=== PATIENT | male | born 1940 | race Caucasian/White ===

== ENCOUNTER 2016-09-18 11:26 | Inpatient (IN) | payer OTHER ==
--- NOTE | ~2016-09-18 | CN ---
Consultation Report [facility] [address] [place]. [address] NAME: RITA WATTS : 39 STATUS : ADM IN PAT#: [id number] AGE: 75 ADM/REG DATE : 09/18/16 MR#: [id number] REPORT SERV DATE: 09/18/16 DICTATED BY: WILLIE LOBATO DATE: 09/18/16 REPORT STATUS : Draft TRANSCRIBED BY: MODL DATE: 09/18/16 CONSULT NOTE DATE OF CONSULTATION: 09/18/2016 REASON FOR CONSULT: Cholecystitis. HISTORY OF PRESENT ILLNESS: Mr. Watts is a 75-year-old gentleman, who states he had an acute onset of right upper quadrant pain yesterday. This progressively worsened until he went to [facility] today. He was noted to have an elevated bilirubin at that time. He was then transferred here to [facility]. He also had an ultrasound performed at [facility], which showed what sounds like cholelithiasis and some gallbladder wall thickening, as well as hepatomegaly. It did not show any common duct dilatation. The patient states he has a CT of the abdomen performed [facility], but we do not have the results of that currently. Prior to that, he did have a fall about three days ago, which he fell on his right side and has had some right-sided abdominal pain, but this was completely different than his previous. He states his urine turned dark today. He has had no previous symptomatology. He denies any fever or chills but has had nausea and vomiting. PAST MEDICAL HISTORY: Includes insulin-dependent diabetes, hypertension, and sleep apnea. PAST SURGICAL HISTORY: Includes no previous abdominal surgeries. MEDICATIONS: B12, Flonase, Lasix, insulin, Combivent, magnesium oxide, Xyzal, metformin, metoprolol, Singulair, and omeprazole. ALLERGIES: HE STATES HE IS ALLERGIC TO LISINOPRIL. FAMILY HISTORY: Significant for his mother who had a history of breast cancer. SOCIAL HISTORY: He is . Denies any recent alcohol use. Stopped smoking in 1988 after smoking for seven years. LABORATORY DATA: From [facility], direct bilirubin was 6.0, total bilirubin was 7.6, AST 541, alkaline phosphatase 266, white count 12.5, hematocrit 48.3, and platelets 291. Creatinine 1.4, BUN 31. IMPRESSION: 75-year-old gentleman with what sounds like cholecystitis and possibly a common bile duct stone, given his significantly elevated bilirubin. At this point, he is nontoxic and afebrile. Recommend placing him on antibiotics and continue IV fluids with clear liquids. Given his significantly elevated bilirubin, I would recommend ERCP if it does not come down tomorrow. If his bilirubin significantly decreases tomorrow, we will discuss cholecystectomy tomorrow afternoon. This was all discussed with the family in detail. Consultation Report [address] [place]. [address] NAME: RITA WATTS : 39 STATUS : ADM IN PAT#: [id number] AGE: 75 ADM/REG DATE : 09/18/16 MR#: [id number] REPORT SERV DATE: 09/18/16 DICTATED BY: WILLIE LOBATO DATE: 09/18/16 REPORT STATUS : Draft TRANSCRIBED BY: ELA DATE: 09/18/16 ANTONY/ELA Willie Lobato M.D. / [id number] CC: Pool Santoyo M.D.
--- NOTE | ~2016-09-18 | OP ---
Record Of Operation [facility] [address] [place]. [address] NAME: RITA WATTS : 39 STATUS : ADM IN PAT#: [id number] AGE: 75 ADM/REG DATE : 09/18/16 MR#: [id number] REPORT SERV DATE: 09/19/16 DICTATED BY: BEULAH MCFARLAND DATE: 09/19/16 REPORT STATUS : Draft TRANSCRIBED BY: MODL DATE: 09/19/16 DATE OF PROCEDURE: 09/19/2016 The patient was status post ERCP earlier today with early sepsis syndrome and then a code blue was called. The patient had agonal breathing and transiently lost pulse and pressure. He had received 1 IV push of epinephrine and high quality compressions CPR. We came to the bedside and using a GlideScope, we were able to directly visualize the vocal cords. He had some bilious fluids in his oropharynx but after suctioning the vocal cords, we were unimpeded, and we advanced to size 8 oroendotracheal tube beyond the vocal cords without difficulty. It was secured in place, and proper placement was confirmed with good color change on an end-tidal CO2 indicator, and good auscultation of breath sounds bilaterally. Chest radiograph is pending. I then advanced an orogastric tube with some difficulty since the patient had a very large swollen tongue and a very narrow oropharynx. The tube was advanced finally without further difficulty with good aspiration of bilious material. KUB is also pending at this time. IMPRESSION: Successful hoahaoism of spontaneous circulation following brief cardiac arrest, code blue CPR, successful oral endotracheal intubation for acute hypercapnic hypoxemic respiratory failure, and successful placement of orogastric tube. REID/ELA Beulah Mcfarland M.D. / [id number] CC: Pool Santoyo M.D.
--- NOTE | ~2016-09-18 | CN ---
Consultation Report [facility] [address] [place]. [address] NAME: RITA WATTS : 39 STATUS : [facility]#: [id number] AGE: 75 ADM/REG DATE : 09/18/16 MR#: [id number] REPORT SERV DATE: 09/20/16 DICTATED BY: BALDEMAR [place] DATE: 09/20/16 REPORT STATUS : Draft TRANSCRIBED BY: MODL DATE: 09/20/16 NEPHROLOGY CONSULTATION DATE OF CONSULTATION: 09/20/2016 INDICATION FOR CONSULTATION: Acute kidney injury. HISTORY OF PRESENT ILLNESS: Mr. Watts is a 75-year-old male, who was transferred from [facility] following presentation there with right upper quadrant pain and elevated bilirubin. His LFTs were markedly elevated with a total bilirubin of 7.6. He was felt to have acute cholecystitis and was seen by Surgery. They had no films for review, but felt that he needed to undergo ERCP. The ERCP was performed by GI on 09/19/2016 with note of esophagitis, hiatal hernia, gastritis, and duodenitis, on the EGD portion. His ERCP demonstrated dilated common bile duct and findings were cleared with balloon dilatation. The patient subsequently experienced code blue with suggestion of early sepsis. He required CPR and intubation and was stabilized. Currently, he is on Levophed and ventilator support. His labs reflect an admission creatinine of 1.67, which has risen to a value of 3.36. He has a bilirubin of 10.3 with elevated alkaline phosphatase of 447, ALT of 562, and AST of 814. His WBC is 12.5, hemoglobin is 14.8. He is currently requiring FiO2 of 90% for ventilator support. Urine output is minimal with lowest blood pressure of 76/46 and T-max was 99.9. PAST MEDICAL HISTORY: Per chart, type 2 diabetes mellitus, hypertension, gout, gastroesophageal reflux disease, foot drop, total knee replacement, vasectomy, fracture right lower extremity, sleep apnea, gastroesophageal reflux disease, hypertension. FAMILY HISTORY: Per chart, breast cancer in mother. No reported end-stage renal disease. SOCIAL HISTORY: The patient does not smoke or drink per chart. ALLERGIES: TO LISINOPRIL CAUSING COUGH. HOME MEDICATIONS: Allopurinol, amlodipine, aspirin, Lipitor, Astelin nasal spray, Symbicort, vitamin D, cinnamon, cranberry, vitamin B12, Flonase nasal inhaler, furosemide, insulin, Humulin 70/30, Combivent inhaler, Xyzal, magnesium oxide, metformin, Lopressor, Singulair, multivitamin, naltrexone, fish oral, Prilosec, garlic. REVIEW OF SYSTEMS: Unable to obtain. PHYSICAL EXAMINATION: GENERAL: Elderly male, ventilated, sedated on Levophed. HEENT: Eyes, no scleral icterus. Pupils are sluggishly reactive. Nares, no lesions or discharge. Mouth with OG, ET tube in place. Consultation Report [address] [place]. [address] NAME: RITA WATTS : 39 STATUS : [facility]#: [id number] AGE: 75 ADM/REG DATE : 09/18/16 MR#: [id number] REPORT SERV DATE: 09/20/16 DICTATED BY: BALDEMAR [place] DATE: 09/20/16 REPORT STATUS : Draft TRANSCRIBED BY: ELA DATE: 09/20/16 NECK: No thyromegaly, masses, bruits. CHEST/LUNGS: Lateral crackles. Unable to appreciate rhonchi or wheezes. CARDIAC: Regular rate and rhythm. Unable to appreciate murmur, gallop, or rub. ABDOMEN: Mild right upper quadrant discomfort, unable to appreciate hepatosplenomegaly, masses, bruits. No guarding. : Indwelling Calvo. RECTAL: Not performed. EXTREMITIES: No edema. No calf tenderness. DERMIS: No rash. No skin lesions. NEUROLOGIC: Unable to evaluate. IMPRESSION: 1. Probable acute on chronic kidney disease due to acute tubular necrosis associated with severe sepsis and shock. 2. Severe sepsis with shock. 3. Acute respiratory failure. 4. Cardiac arrest. 5. Recent ERCP for dilated common bile duct and acute cholecystitis. 6. Type 2 diabetes mellitus. 7. History of hypertension. 8. Gastritis, esophagitis, duodenitis on EGD. 9. Elevated liver function test. 10.Gout. 11.Gastroesophageal reflux disease. 12.History of right lower extremity fracture. PLAN: 1. The patient will likely need DIGITAL SALES MANAGER. 2. Labs. LEANNA/ELA Baldemar Taylor M.D. / [id number] CC: Pool Santoyo M.D.
--- NOTE | ~2016-09-18 | EGD ---
EGD REPORT [facility] [address] [place] [address] NAME: RITA WATTS : 39 STATUS : ADM IN PAT#: [id number] AGE: 75 ADM/REG DATE : 09/18/16 MR#: [id number] REPORT SERV DATE: 09/19/16 DICTATED BY: CELI ROCHE DATE: 09/19/16 REPORT STATUS : Draft TRANSCRIBED BY: IATARH [facility] DATE: 09/19/16 [facility] Patient Name: Rita Watts Date of : 1940 Attending MD: CELI ROCHE MD Procedure Date No Time: 09/19/2016 Procedure: ERCP Indications: Abdominal pain of suspected biliary origin, Suspected bile duct stone(s), Suspected ascending cholangitis, Jaundice, Abnormal liver function test Referring MD: SWATI CONTRERAS Medicines: General Anesthesia Complications: No immediate complications. Procedure: Pre-Anesthesia Assessment: - ASA Grade Assessment: III - A patient with severe systemic disease. After obtaining informed consent, the scope was passed under direct vision. Throughout the procedure, the patient's blood pressure, pulse, and oxygen saturations were monitored continuously. The TJF Q180V [id number] was introduced through the mouth, and advanced to the duodenum and used to inject contrast into the bile duct and ventral pancreatic duct. The ERCP was accomplished without difficulty. The patient tolerated the procedure well. Findings: The major papilla was normal. The minor papilla was not seen. The bile duct was deeply cannulated with the short-nosed traction sphincterotome. Contrast was injected. I personally interpreted the pancreatic duct images. Ductal flow of contrast was adequate. Image quality was adequate. Contrast extended to the pancreatic duct. The in the biliary system was normal. The bile duct was deeply cannulated with the short-nosed traction sphincterotome. Contrast was injected. The main bile duct was diffusely dilated, with a stone causing an obstruction. A 12 mm biliary sphincterotomy was made with a short-tip traction sphincterotome using ERBE electrocautery. There was no post-sphincterotomy bleeding. The main bile duct contained multiple stones, the largest of which was 8 mm in diameter. The biliary tree was swept with a 12 mm balloon starting at the upper third of the main bile duct. All stones were removed. Impression: - The major papilla appeared normal. - The entire main bile duct was dilated, with a stone causing an obstruction. EGD REPORT [address] [address] NAME: RITA WATTS : 39 STATUS : ADM IN [facility]#: [id number] AGE: 75 ADM/REG DATE : 09/18/16 MR#: [id number] REPORT SERV DATE: 09/19/16 DICTATED BY: CLEI ROCHE DATE: 09/19/16 REPORT STATUS : Draft TRANSCRIBED BY: [employer] DATE: 09/19/16 - Choledocholithiasis was found. Complete removal was accomplished by biliary sphincterotomy and balloon extraction. Recommendation: - Clear liquid diet. - Check liver enzymes (AST, ALT, alkaline phosphatase, bilirubin) tonight. - and in the morning - Check hemogram with white blood cell count and platelets tonight. - and in the morning - OK for surgery from GI point of view - Return patient to [facility] for [facility] care. 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 All rights reserved. The codes documented in this report are preliminary and upon wilderness guide review may be revised to meet current compliance requirements. Celi Roche MD CELI ROCHE MD EGD REPORT [facility] [address] [place], [place] [address]. [address] NAME: RITA WATTS : [birth year] STATUS : ADM IN [facility]#: [id number] AGE: 75 ADM/REG DATE : 09/18/16 MR#: [id number] REPORT SERV DATE: 09/19/16 DICTATED BY: CELI ROCHE DATE: 09/19/16 REPORT STATUS : Draft TRANSCRIBED BY: [employer] DATE: 09/19/16 09/19/2016 2:55 PM This report has been signed electronically. Number of Addenda: 0 Note Initiated On: 09/19/2016 11:49 AM Scope Withdrawal Time 0 hours 0 minutes [address] [place], [place] [address] [address]
--- NOTE | ~2016-09-18 | IDS ---
Interim Discharge Summary [facility] [address] [place]. [address] NAME: RITA WATTS : 39 STATUS : ADM IN PAT#: [id number] AGE: 76 ADM/REG DATE : 09/18/16 MR#: [id number] REPORT SERV DATE: 09/29/16 DICTATED BY: CHON POP IV DATE: 09/28/16 REPORT STATUS : Draft TRANSCRIBED BY: MODL DATE: 09/28/16 ADMISSION DATE: 09/18/2016 DISCHARGE DATE: Date of transfer to the ICU is the 09/19/2016. REASON FOR TRANSFER: 1. Acute hypoxemic respiratory failure following an ERCP. 2. Septic shock, still on vasopressor agents. 3. Cholangitis/cholecystitis, status post cholecystostomy tube and the ERCP. 4. Acute kidney injury, remaining on BUILDING MAINTENANCE CUSTODIAN. 5. Atrial fibrillation with rapid ventricular response, now off amiodarone. 6. Diabetes mellitus, on insulin coverage. CONSULTANTS: Include Nephrology, who continues to follow the patient, Gastroenterology, who continues to follow the patient, and General Surgery who is available if he recovers. PROCEDURES: The patient had the ERCP prior to his transfer to the unit. He had a central line placed by Anesthesiology at the same time. The patient underwent a cholecystostomy tube on 09/25/2016 and had a PICC line placed on 09/27/2016. He had a Vas-Cath placed on 09/20/2016. MEDICATIONS: Were reviewed. HOSPITAL COURSE: The patient was intubated by Dr. Mcfarland on 09/29/2016 and moved to the ICU. At that time, he was in shock, requiring vasopressor agents. Levophed has been able to be weaned. He remains vasopressor dependent. On 09/20/2016, he had a Vas-Cath placed and began BUILDING MAINTENANCE CUSTODIAN, and he remains on BUILDING MAINTENANCE CUSTODIAN at this time. The patient initially required very high FiO2 to maintain adequate oxygen saturations. This improved throughout the week. He did develop atrial fibrillation with rapid ventricular response on 09/21/2016 requiring amiodarone, which was continued for four days with no further dysrhythmias. The patient had clinical improvement in the early week; however then, had increase in his oxygen needs as well as his vasopressors. This correlated with a continued rise in his transaminases and alkaline phosphatase. An ultrasound was obtained of his right upper quadrant demonstrating a dilated gallbladder with thickened dominguez and pericholecystic fluid. The patient was felt to be too unstable for surgery, so underwent cholecystostomy tube on 09/25/2016. All cultures have been negative, though he has remained empirically on his vancomycin and Zosyn. He had significant clinical improvement after the cholecystostomy tube and we have currently weaned him down to 40%, and he has initiated wean trials. There has been some movement down in his Levophed doses. There was a very long discussion with Gastroenterology, myself, and the family on 09/25/2016 concerning continued support to the patient with the patient's initially wanting withdrawal of therapy despite his clinical improvement. She agreed with continued support at this time, though it is unlikely the patient is a candidate for tracheostomy. He is on a heparin drip not because of his tachydysrhythmia, but because of difficulty with recurrent clotting of the BUILDING MAINTENANCE CUSTODIAN filter. Interim Discharge Summary [address] [place]. [address] NAME: RITA WATTS : 38 STATUS : ADM IN [facility]#: [id number] AGE: 76 ADM/REG DATE : 09/18/16 MR#: [id number] REPORT SERV DATE: 09/29/16 DICTATED BY: CHON POP IV DATE: 09/28/16 REPORT STATUS : Draft TRANSCRIBED BY: ELA DATE: 09/28/16 Critical Care team will assume care on 09/29/2016. The patient does remain a limited code with no CPR. SCOOTER/ELA Chon Pop IV, M.D. / [id number] CC: Yazan Markham IV, MD
--- NOTE | ~2016-09-18 | HP ---
History And Physical [place] [id number] [place]. [address] NAME: RITA WATTS : [birth year] STATUS : ADM IN PAT#: [id number] AGE: 75 ADM/REG DATE : 09/18/16 MR#: [id number] REPORT SERV DATE: 09/18/16 DICTATED BY: TEJAS MORALES DATE: 09/18/16 REPORT STATUS : Draft TRANSCRIBED BY: MODL DATE: 09/18/16 DATE OF ADMISSION: 09/18/2016 CHIEF COMPLAINT: Probable cholecystitis. HISTORY OF PRESENT ILLNESS: The patient is a 75-year-old male. He has a past medical history significant for diabetes, hypertension, GERD, gout, and footdrop. The patient presented today as a referral from [facility] for gallbladder obstruction versus cholecystitis. The patient states that he had a fall around [facility] . He describes it as a simple mechanical fall as he has some right footdrop. He believes he missed a stair and fell forward. He had some right rib pain at that time and was recuperating from that. Yesterday, he reported the onset of more intense pain that he describes as generalized around his abdomen that further discussion commit somewhat to being little more right upper quadrant. He felt that was probably related to his fall but throughout the day had worsening pain and started developing nausea and vomiting, mostly dry heaves. He is not aware that he ran any fever. He presented to the [facility] ER today with complaints and had a CT scan and an ultrasound as well as lab work. The ultrasound noted gallbladder wall thickening and ductal dilatation, and cholecystitis. His CT scan did not show the gallbladder to be the upper limits of normal, neither showed a definitive stone, although his LFTs are markedly elevated as is his total bilirubin of 7.6. Currently, he is complaining of some pain, but he is alert and oriented. He has received pain medications from [facility] prior to arrival. He complains of being very thirsty and wanting to eat, otherwise he is without complaints. He does not recount any previous history of diagnosed cardiovascular or pulmonary problems. PAST MEDICAL HISTORY: As covered above. PAST SURGICAL HISTORY: He has had a knee replacement, vasectomy, and fracture to his right leg requiring plates and screws. CURRENT MEDICATIONS: His list is pending. ALLERGIES: HE REPORTS LISINOPRIL CAUSES HIM A COUGH. FAMILY HISTORY: Mother from breast cancer. He is uncertain of his father's history. SOCIAL HISTORY: He is a nondrinker, nonsmoker. REVIEW OF SYSTEMS: HEENT: No headache, dizziness. CARDIOVASCULAR: No chest pain or palpitations. PULMONARY: No cough or shortness of breath. GI: As covered in HPI. He also in addition to that states he has some constipation for the past day or so. : No dysuria or frequency. History And Physical [address] [address] NAME: RITA WATTS : 39 STATUS : ADM IN PAT#: [id number] AGE: 75 ADM/REG DATE : 09/18/16 MR#: [id number] REPORT SERV DATE: 09/18/16 DICTATED BY: TEJAS MORALES DATE: 09/18/16 REPORT STATUS : Draft TRANSCRIBED BY: ELA DATE: 09/18/16 NEUROMUSCULOSKELETAL: Positive but otherwise 10-point review of systems is negative. PHYSICAL EXAMINATION: VITAL SIGNS: BP was 180/78, sat 93%, temp 97.6, pulse 95, respirations 16. GENERAL: He is awake, alert, and oriented. HEENT: Normocephalic, atraumatic. Sclerae nonicteric. NECK: Supple. HEART: Tachycardic. Regular. LUNGS: Clear to auscultation without rhonchi, rales, or wheezes. ABDOMEN: He is slightly obese. He does have some abdominal tenderness that is generalized. It does seem to be slightly more right up under the right ribs. EXTREMITIES: Show some chronic discoloring changes to his lower extremities with nothing acute. NEUROLOGIC: Grossly intact. LABORATORY DATA: As reviewed from [facility], ultrasound abdomen read as hepatomegaly. Gallbladder is distended with sludge and echogenic material with wall thickening suggestive of acute cholecystitis. Gallbladder wall measuring 7.6, and common bile duct measuring 7.6. CT shows no acute abnormality of the abdomen and pelvis, top normal gallbladder size and length, increased gallbladder density, which may represent milk of calcium bile or cholelithiasis, degenerative joint disease. X-ray showing no pneumothorax and no rib fracture is identified. Chemistries showed UA with 80 ketones and 500 sugar. Sodium 137, potassium 3.8, chloride 96, CO2 26, BUN and creatinine were 31 and 1.4. Glucose was 227, total bilirubin was 7.6. AST and ALT were 581 and 465. Alkaline phosphatase was 266. White count was 12.5, H and H is 15.8 and 48.3, platelets were 291. ASSESSMENT: 1. Probable cholecystitis with elevated white count, compatible with clinical symptoms and pain and tenderness. 2. Elevated LFTs and bilirubin. Question obstruction not seen on CT or ultrasound. PLAN: The patient has been admitted. IV pain medications, IV fluids, prophylactic antibiotics with Rocephin. We will consult General Surgery for possible cholecystectomy versus GI for ERCP. We will await the patient's home medications. We will cover with sliding scale insulin. We will cover with p.r.n. BP medications if blood pressure does not decrease with pain medications. CHERIE/ELA Tejas Morales M.D. / [id number] CC: History And Physical [address] [address] NAME: RITA WATTS : 38 STATUS : [facility]#: [id number] AGE: 75 ADM/REG DATE : 09/18/16 MR#: [id number] REPORT SERV DATE: 09/18/16 DICTATED BY: TEJAS MORALES DATE: 09/18/16 REPORT STATUS : Draft TRANSCRIBED BY: MODL DATE: 09/18/16 Tejas Morales M.D.
--- NOTE | ~2016-09-18 | CN ---
Consultation Report [facility] [address] [facility] [place]. [address] NAME: RITA WATTS : [birth year] STATUS : ADM IN [facility]#: [id number] AGE: 75 ADM/REG DATE : 09/18/16 MR#: [id number] REPORT SERV DATE: 09/19/16 DICTATED BY: ISAC JUNE DATE: 09/19/16 REPORT STATUS : Draft TRANSCRIBED BY: MODL DATE: 09/19/16 GI CONSULTATION DATE OF CONSULTATION: 09/18/2016 REASON FOR CONSULTATION: Elevated liver enzymes. Right-sided abdominal pain. Acute cholecystitis. HISTORY OF PRESENT ILLNESS: Mr. Watts is a 75-year-old gentleman with a history of diabetes, hypertension, and sleep apnea who had a fall and noted some right-sided abdominal pain. He was seen at [facility]. He was evaluated there and had an ultrasound which showed hepatomegaly and some wall thickening of the gallbladder as well as ductal dilatation and signs suggestive of cholecystitis. His liver enzymes have also been elevated. His bilirubin is 7.6, AST 581, ALT 465, alkaline phosphatase 137, and lipase is 83. White count is 12.5. He has been afebrile. Vital signs are stable. Surgery has been consulted for acute cholecystitis. PAST MEDICAL HISTORY: Diabetes, hypertension, reflux, gout, and footdrop. PAST SURGICAL HISTORY: Right knee replacement, vasectomy, and fracture of the right leg. FAMILY HISTORY: Breast cancer. SOCIAL HISTORY: No smoking, alcohol, or drug use. MEDICATIONS: Reviewed. ALLERGIES: REVIEWED. PHYSICAL EXAMINATION: VITAL SIGNS: The patient is afebrile. His vital signs are stable. GENERAL: The patient is awake, alert, and oriented, in some mild distress secondary to his abdominal pain. Obese. HEENT: Atraumatic, normocephalic. Scleral icterus. Mucous membranes moist. CARDIAC: S1, S2. CHEST: Clear. ABDOMEN: Obese, soft, tender to palpation mostly in the right abdomen. Bowel sounds normoactive. LABORATORY DATA: Showed WBC 12.5, hemoglobin 18.8, hematocrit 48.3, and platelets 291. Sodium 137, potassium 3.8, chloride 96, bicarb 26, BUN 31, creatinine 1.4, glucose 227, and lipase 83. Outlying facility ultrasound report reviewed. IMPRESSION AND PLAN: Acute cholecystitis. We will check liver enzymes and trend; if remains Consultation Report [facility] [address] [place]. [address] NAME: RITA WATTS : 38 STATUS : ADM IN PAT#: [id number] AGE: 75 ADM/REG DATE : 09/18/16 MR#: [id number] REPORT SERV DATE: 09/19/16 DICTATED BY: ISAC JUNE DATE: 09/19/16 REPORT STATUS : Draft TRANSCRIBED BY: ELA DATE: 09/19/16 elevated, we will increase. We will plan for ERCP for a possible choledocholithiasis. Appreciate Surgery on board. We will continue to follow. KENTRELL/ELA Isac June MD / [id number] CC: Yazan Haas MD
--- NOTE | ~2016-09-18 | DS ---
Discharge Summary [facility] [address] [facility] [place]. [address] NAME: RITA WATTS : 38 STATUS : DIS IN PAT#: [id number] AGE: 76 ADM/REG DATE : 09/18/16 MR#: [id number] REPORT SERV DATE: 10/21/16 DICTATED BY: CLEVE RIVERA DATE: 10/21/16 REPORT STATUS : Draft TRANSCRIBED BY: MODL DATE: 10/21/16 ADMISSION DATE: 09/18/2016 DISCHARGE DATE: 09/30/2016 SUMMARY. DATE OF : 09/30/2016 at 12:15 p.m. DIAGNOSES: 1. Acute hypoxic respiratory failure. 2. Septic shock. 3. Cholangitis/cholecystitis. 4. Acute kidney injury. 5. Atrial fibrillation with rapid ventricular response. 6. Diabetes mellitus. CONSULTANTS: Nephrology, Gastroenterology, Interventional Radiology, General Surgery. PROCEDURES: ERCP by GI. Central line. Cholecystostomy tube 09/25/2016. PICC line, 09/27/2016. Vas cath, 09/20/2016. HOSPITAL COURSE: The patient was intubated and sent to the ICU on 09/29/2016. He was in shock on vasopressor agents which included Levophed. He had worsening of acute kidney injury and drop in urine output. So, a vas cath had to be placed on 09/20/2016 and he was started on CRRT. He also given amiodarone because of atrial fibrillation with a rapid heart rate. The patient had diseased gallbladder and felt too high risk for surgery, so a cholecystostomy tube was placed on 09/25/2016. He was on antibiotics including vancomycin and Zosyn. The patient had a decline around 09/28/2016 and 09/29/2016 with worsening jaundice and shock-like symptoms. Had Interventional Radiology, GI, and General Surgery re- evaluate the patient for possible procedure intervention. He was taken to IR for potential replacement of his cholecystostomy tube that was no longer draining. It was felt that, replacing a new one would not be helpful and there was no other type of interventional procedure that he would be a candidate for and Surgery felt that the patient was still too high risk to go back to the operating room. It was thought that the patient's main problem was liver disease itself and that removing the gallbladder may not benefit him. I had been in communication with the by phone and she decided that due to lack of clinical improvement that she wanted to withdraw care. The patient was made DNR and the was at bedside when the patient coded, underwent cardiac arrest and passed. He on 09/30/2016 at 12:15 p.m. DICTATED BY: Cleve Rivera DO CEP/ELA Discharge Summary [address] [address] NAME: RITA WATTS : 38 STATUS : DIS IN PAT#: [id number] AGE: 76 ADM/REG DATE : 09/18/16 MR#: [id number] REPORT SERV DATE: 10/21/16 DICTATED BY: CLEVE RIVERA DATE: 10/21/16 REPORT STATUS : Draft TRANSCRIBED BY: ELA DATE: 10/21/16 Cleve Rivera DO / [id number] CC: Yazan Markham IV, MD
--- NOTE | ~2016-09-18 | EGD ---
EGD REPORT [address] [place] [address] NAME: RITA WATTS : 38 STATUS : ADM IN PAT#: [id number] AGE: 75 ADM/REG DATE : 09/18/16 MR#: [id number] REPORT SERV DATE: 09/19/16 DICTATED BY: CELI ROCHE DATE: 09/19/16 REPORT STATUS : Draft TRANSCRIBED BY: [facility] DATE: 09/19/16 Endoscopy Center Patient Name: Rita Watts Date of : 1940 Attending MD: CELI ROCHE MD Procedure Date No Time: 09/19/2016 Procedure: Upper GI endoscopy Indications: Epigastric abdominal pain, Abdominal pain in the right upper quadrant, Abdominal pain in the left upper quadrant, Heartburn, Gastro-esophageal reflux disease Referring MD: DOROTHY CARY Medicines: General Anesthesia Complications: No immediate complications. Procedure: Pre-Anesthesia Assessment: - ASA Grade Assessment: III - A patient with severe systemic disease. After obtaining informed consent, the endoscope was passed under direct vision. Throughout the procedure, the patient's blood pressure, pulse, and oxygen saturations were monitored continuously. The GIF [id number] was introduced through the mouth, and advanced to the third part of duodenum. The upper GI endoscopy was accomplished without difficulty. The patient tolerated the procedure well. Findings: Non-severe esophagitis with no bleeding was found in the entire esophagus. A large hiatus hernia was present. as seen on retroflexion Diffuse mild inflammation characterized by congestion (edema) and erythema was found in the entire examined stomach. Diffuse moderate inflammation characterized by congestion (edema), erosions and erythema was found in the duodenal bulb and in the second part of the duodenum. The 3rd part of the duodenum was normal. Impression: - Non-severe reflux esophagitis. - Hiatus hernia. - Gastritis. - Duodenitis. - Normal 3rd part of the duodenum. Recommendation: - Clear liquid diet today. - Continue present medications. - Perform an ERCP today. EGD REPORT [address] [address] NAME: RITA WATTS : 38 STATUS : ADM IN [facility]#: [id number] AGE: 75 ADM/REG DATE : 09/18/16 MR#: [id number] REPORT SERV DATE: 09/19/16 DICTATED BY: CELI ROCHE DATE: 09/19/16 REPORT STATUS : Draft TRANSCRIBED BY: [employer] DATE: 09/19/16 - [facility]. Procedure Code(s): --- Professional --- 00217, Esophagogastroduodenoscopy, flexible, transoral; diagnostic, including collection of specimen(s) by brushing or washing, when performed (separate procedure) Diagnosis Code(s): --- Professional --- K21.0, Gastro-esophageal reflux disease with esophagitis K44.9, Diaphragmatic hernia without obstruction or gangrene K29.70, Gastritis, unspecified, without bleeding K29.80, Duodenitis without bleeding R10.13, Epigastric pain R10.11, Right upper quadrant pain R10.12, Left upper quadrant pain R12, Heartburn CPT copyright 2013 [employer]. All rights reserved. The codes documented in this report are preliminary and upon line palletizer review may be revised to meet current compliance requirements. Celi Roche MD CELI ROCHE MD 09/19/2016 2:34 PM This report has been signed electronically. Number of Addenda: 0 Note Initiated On: 09/19/2016 12:53 PM Scope Withdrawal Time 0 hours 0 minutes 0 seconds [address] [place] [address]
[2016-09-18] MEDS ORDERED: L40 PO (14:15)
[2016-09-18] MEDS ORDERED: LIPITOR20 PO (14:15)
[2016-09-18] MEDS ORDERED: INSNOV7030 SC ×2 (14:16→14:17)
[2016-09-18] MEDS ORDERED: NORV5 PO (14:20)
[2016-09-18] MEDS ORDERED: LOP25 PO (14:21)
[2016-09-18] MEDS ORDERED: GLUCOPHAGE1000 MG PO (14:21)
[2016-09-18] MEDS ORDERED: PRILO PO (14:22)
[2016-09-18] MEDS ORDERED: CONTRAVE ER 8-1 EACH PO (14:23)
[2016-09-18] MEDS ORDERED: MAGOX4 PO (14:23)
[2016-09-18] MEDS ORDERED: HALF81 PO (14:24)
[2016-09-18] MEDS ORDERED: Z300 PO (14:24)
[2016-09-18] MEDS ORDERED: VITAMIN D1000 UNI1 PO (14:25)
[2016-09-18] MEDS ORDERED: CINNAMONPO PO (14:25)
[2016-09-18] MEDS ORDERED: MULTIVITAMI1 PO (14:26)
[2016-09-18] MEDS ORDERED: GARLIC TABLET PO (14:26)
[2016-09-18] MEDS ORDERED: CYANO1000T PO (14:27)
[2016-09-18] MEDS ORDERED: FISH-EPA1000 MG PO (14:27)
[2016-09-18] MEDS ORDERED: SYMBICORT 160/41 INH INH (14:28)
[2016-09-18] MEDS ORDERED: CRANBERRY400 MG PO (14:28)
[2016-09-18] MEDS ORDERED: COMBIVENT RESPIM4 GM INH (14:29)
[2016-09-18] MEDS ORDERED: XYZAL5 MG PO (14:30)
[2016-09-18] MEDS ORDERED: SINGULAIR1 PO (14:30)
[2016-09-18] MEDS ORDERED: FLONASE NAS (14:33)
[2016-09-18 14:34] LABS: PROCALCITONIN 0.88 ng/mL (<0.5)
[2016-09-18] MEDS ORDERED: ASTELIN NAS (14:34)
[2016-09-19 04:54] LABS: HEMOGLOBIN 14.7 g/dL (13.6-17.8); MEAN CORPUS HGB CONC 33.9 g/dL (32.0-36.0); MEAN CORPUSCULAR HEMOGLOB 29.2 pg (26.0-34.0); MEAN CORPUSCULAR VOLUME 86.1 fL (80-100); MEAN PLATELET VOLUME 9.9 fL (9.2-13.0); PLATELET COUNT 268 10/3/uL (150-400); RED CELL COUNT 5.03 10/6/uL (4.7-6.1)
[2016-09-19 04:56] LABS: HEMATOCRIT 43.3 % (40.0-51.0); MANUAL DIFF YES %; RBC DISTRIBUTION WIDTH 16.5 % (12.0-16.0); WHITE BLOOD CELLS 18.3 10/3/uL (4.5-10.5)
[2016-09-19 05:20] LABS: BAND NEUTROPHILS 5 %; LYMPHOCYTES 4 %; LYMPHOCYTES ABSOLUTE (CALC) 0.73 10/3/uL (0.67-4.30); MONOCYTES 3 %; MONOCYTES ABSOLUTE (CALC) 0.55 10/3/uL (0.21-1.20); NEUTROPHILS ABSOLUTE (CALC) 17.02 10/3/uL (2.02-8.40); PLATELET ESTIMATE ADQ (ADEQUATE); SEGMENTED NEUTROPHIL (0) 88 %; TOTAL NUCLEATED CELLS 100
[2016-09-19 05:21] LABS: RBC MORPHOLOGY NORM (NORMAL)
[2016-09-19 06:36] LABS: A/G RATIO 0.8 (0.7-1.9); ALBUMIN 2.8 G/DL (3.5-5.0); ALKALINE PHOSPHATASE 362 U/L (45-117); BUN (BLOOD UREA NITROGEN) 33 MG/DL (6-23); CALCIUM, SERUM 8.6 MG/DL (8.5-10.4); CHLORIDE, SERUM 99 MMOL/L (96-112); CO2 (CARBON DIOXIDE) 31 MMOL/L (24-34); CREATININE 1.67 MG/DL (0.70-1.30); GFR AFRICAN AMERICAN 45 ML/MIN (>=60); GFR NON AFRICAN AMERICAN 39 ML/MIN (>=60); GLOBULIN 3.3 G/DL (2.5-4.1); GLUCOSE, SERUM 192 MG/DL (60-99); POTASSIUM, SERUM 3.9 MMOL/L (3.5-5.3); SGPT(ALT) 482 U/L (5-65); SODIUM, SERUM 136 MMOL/L (135-148); TOTAL BILIRUBIN 9.7 MG/DL (0-1.2); TOTAL PROTEIN 6.1 G/DL (6.0-8.5)
[2016-09-19 06:37] LABS: SGOT(AST) 627 U/L (5-40)
[2016-09-19 20:05] LABS: HEMATOCRIT 42.7 % (40.0-51.0); MEAN CORPUS HGB CONC 32.8 g/dL (32.0-36.0); MEAN CORPUSCULAR HEMOGLOB 29.2 pg (26.0-34.0); PLATELET COUNT 246 10/3/uL (150-400); RBC DISTRIBUTION WIDTH 16.2 % (12.0-16.0); RED CELL COUNT 4.79 10/6/uL (4.7-6.1); WHITE BLOOD CELLS 16.1 10/3/uL (4.5-10.5)
[2016-09-19 20:07] LABS: MANUAL DIFF YES %; MEAN CORPUSCULAR VOLUME 89.1 fL (80-100)
[2016-09-19 20:27] LABS: ALBUMIN 2.5 G/DL (3.5-5.0); CALCIUM, SERUM 8.3 MG/DL (8.5-10.4); CHLORIDE, SERUM 98 MMOL/L (96-112); DIRECT BILIRUBIN 8.5 MG/DL (0.0-0.4); GLUCOSE, SERUM 194 MG/DL (60-99); INDIRECT BILIRUBIN(NOT ORDER) 1.4 MG/DL (0.1-0.9); POTASSIUM, SERUM 4.2 MMOL/L (3.5-5.3); SGOT(AST) 746 U/L (5-40); SGPT(ALT) 520 U/L (5-65); SODIUM, SERUM 137 MMOL/L (135-148); TOTAL BILIRUBIN 9.9 MG/DL (0-1.2); TOTAL PROTEIN 5.6 G/DL (6.0-8.5)
[2016-09-19 20:28] LABS: ALKALINE PHOSPHATASE 402 U/L (45-117); BUN (BLOOD UREA NITROGEN) 42 MG/DL (6-23); CO2 (CARBON DIOXIDE) 25 MMOL/L (24-34); CREATININE 2.74 MG/DL (0.70-1.30); GFR AFRICAN AMERICAN 25 ML/MIN (>=60); GFR NON AFRICAN AMERICAN 22 ML/MIN (>=60)
[2016-09-19 20:30] LABS: BAND NEUTROPHILS 12 %; LYMPHOCYTES 6 %; LYMPHOCYTES ABSOLUTE (CALC) 0.97 10/3/uL (0.67-4.30); MONOCYTES 5 %; MONOCYTES ABSOLUTE (CALC) 0.81 10/3/uL (0.21-1.20); NEUTROPHILS ABSOLUTE (CALC) 14.33 10/3/uL (2.02-8.40); SEGMENTED NEUTROPHIL (0) 77 %; TOTAL NUCLEATED CELLS 100
[2016-09-19 20:31] LABS: RBC MORPHOLOGY NORM (NORMAL)
[2016-09-19 23:27] LABS: BE (BASE EXCESS) -6.2 MEQ/L (0 +/- 2.5); CARBOXYHEMOGLOBIN 1.1 % (0-3); HEMOBLOGIN CONTENT 14.8 G/DL (14-18); INSTRUMENT SERIAL # 35151; METHEMOGLOBIN 0.4 % (0-3); MODE CMV; O2 CONTENT 18.8 VOL% (18-24); OPERATOR ID 13861; PCO2 (CO2 TENSION) 54 MMHG (35-45); PO2 (O2 TENSION) 68 MMHG (79-93); SAMPLE Arterial; TIDAL VOLUME 550 ML; pH 7.23 (7.37-7.43)
[2016-09-20 04:45] LABS: BASOPHILS 0.1 %; BASOPHILS ABSOLUTE 0.01 10/3/uL (0.0-0.16); EOSINOPHILS 0.1 %; EOSINOPHILS ABSOLUTE 0.01 10/3/uL (0.0-0.53); HEMATOCRIT 44.8 % (40.0-51.0); HEMOGLOBIN 14.8 g/dL (13.6-17.8); IMMATURE GRANULOCYTES ABSOLUTE 0.13 10/3/uL (0.0-0.11); LYMPHOCYTES 8.1 %; LYMPHOCYTES ABSOLUTE 1.01 10/3/uL (0.67-4.30); MEAN CORPUSCULAR HEMOGLOB 29.8 pg (26.0-34.0); MEAN CORPUSCULAR VOLUME 90.1 fL (80-100); MEAN PLATELET VOLUME 10.7 fL (9.2-13.0); MONOCYTES 5.8 %; MONOCYTES ABSOLUTE 0.72 10/3/uL (0.21-1.20); NEUTROPHILS 84.9 %; NEUTROPHILS ABSOLUTE 10.59 10/3/uL (2.02-8.40); PLATELET COUNT 266 10/3/uL (150-400); RBC DISTRIBUTION WIDTH 15.8 % (12.0-16.0); RED CELL COUNT 4.97 10/6/uL (4.7-6.1); WHITE BLOOD CELLS 12.5 10/3/uL (4.5-10.5)
[2016-09-20 04:49] LABS: ALBUMIN 2.5 G/DL (3.5-5.0); ALKALINE PHOSPHATASE 447 U/L (45-117); BUN (BLOOD UREA NITROGEN) 48 MG/DL (6-23); CHLORIDE, SERUM 98 MMOL/L (96-112); CO2 (CARBON DIOXIDE) 25 MMOL/L (24-34); CREATININE 3.36 MG/DL (0.70-1.30); DIRECT BILIRUBIN 8.3 MG/DL (0.0-0.4); GFR AFRICAN AMERICAN 19 ML/MIN (>=60); GFR NON AFRICAN AMERICAN 17 ML/MIN (>=60); GLUCOSE, SERUM 215 MG/DL (60-99); POTASSIUM, SERUM 4.5 MMOL/L (3.5-5.3); SGPT(ALT) 562 U/L (5-65); SODIUM, SERUM 134 MMOL/L (135-148); TOTAL BILIRUBIN 10.3 MG/DL (0-1.2); TOTAL PROTEIN 5.9 G/DL (6.0-8.5)
[2016-09-20 04:50] LABS: SGOT(AST) 814 U/L (5-40)
[2016-09-20 04:51] LABS: MANUAL DIFF NO %
[2016-09-20 18:28] LABS: BE (BASE EXCESS) -6.2 MEQ/L (0 +/- 2.5); CARBOXYHEMOGLOBIN 0.9 % (0-3); HEMOBLOGIN CONTENT 15.4 G/DL (14-18); INSTRUMENT SERIAL # 35151; METHEMOGLOBIN 0.5 % (0-3); MODE CMV; O2 CONTENT 19.1 VOL% (18-24); OPERATOR ID 35188; PCO2 (CO2 TENSION) 42 MMHG (35-45); PO2 (O2 TENSION) 57 MMHG (79-93); SAMPLE Arterial; TIDAL VOLUME 600 ML
[2016-09-20 23:06] LABS: BE (BASE EXCESS) -6.5 MEQ/L (0 +/- 2.5); CARBOXYHEMOGLOBIN 0.8 % (0-3); HCO3 (ACTUAL BICARBONATE) 20.5 MEQ/L (23-27); HEMOBLOGIN CONTENT 15.5 G/DL (14-18); INSTRUMENT SERIAL # 35151; METHEMOGLOBIN 0.5 % (0-3); MODE CMV; O2 CONTENT 19.3 VOL% (18-24); OPERATOR ID 30013; PCO2 (CO2 TENSION) 46 MMHG (35-45); PO2 (O2 TENSION) 59 MMHG (79-93); SAMPLE Arterial; TIDAL VOLUME 600 ML; pH 7.27 (7.37-7.43)
[2016-09-20 23:09] LABS: A/G RATIO 0.6 (0.7-1.9); ALBUMIN 2.1 G/DL (3.5-5.0); CALCIUM, SERUM 7.6 MG/DL (8.5-10.4); CHLORIDE, SERUM 98 MMOL/L (96-112); CO2 (CARBON DIOXIDE) 22 MMOL/L (24-34); GLOBULIN 3.5 G/DL (2.5-4.1); GLUCOSE, SERUM 254 MG/DL (60-99); PHOSPHORUS, SERUM 4.4 MG/DL (2.5-4.5); SODIUM, SERUM 130 MMOL/L (135-148); TOTAL PROTEIN 5.6 G/DL (6.0-8.5)
[2016-09-20 23:13] LABS: ALKALINE PHOSPHATASE 561 U/L (45-117); BUN (BLOOD UREA NITROGEN) 59 MG/DL (6-23); CREATININE 4.93 MG/DL (0.70-1.30); GFR AFRICAN AMERICAN 12 ML/MIN (>=60); GFR NON AFRICAN AMERICAN 11 ML/MIN (>=60); POTASSIUM, SERUM 4.5 MMOL/L (3.5-5.3); TOTAL BILIRUBIN 11.1 MG/DL (0-1.2)
[2016-09-20 23:14] LABS: SGOT(AST) 578 U/L (5-40); SGPT(ALT) 421 U/L (5-65)
[2016-09-21 04:11] LABS: BE (BASE EXCESS) -6.9 MEQ/L (0 +/- 2.5); HCO3 (ACTUAL BICARBONATE) 20.7 MEQ/L (23-27); INSTRUMENT SERIAL # 35151; PCO2 (CO2 TENSION) 49 MMHG (35-45); PO2 (O2 TENSION) 63 MMHG (79-93); pH 7.25 (7.37-7.43)
[2016-09-21 04:12] LABS: HEMOBLOGIN CONTENT 15.5 G/DL (14-18); METHEMOGLOBIN 0.5 % (0-3); MODE CMV; O2 CONTENT 19.5 VOL% (18-24); OPERATOR ID 30013; SAMPLE Arterial; TIDAL VOLUME 600 ML
[2016-09-21 05:38] LABS: BASOPHILS 0.2 %; BASOPHILS ABSOLUTE 0.02 10/3/uL (0.0-0.16); EOSINOPHILS 0.4 %; EOSINOPHILS ABSOLUTE 0.04 10/3/uL (0.0-0.53); HEMATOCRIT 44.8 % (40.0-51.0); HEMOGLOBIN 14.7 g/dL (13.6-17.8); IMMATURE GRANULOCYTES 0.7 %; IMMATURE GRANULOCYTES ABSOLUTE 0.07 10/3/uL (0.0-0.11); LYMPHOCYTES 6.3 %; LYMPHOCYTES ABSOLUTE 0.64 10/3/uL (0.67-4.30); MANUAL DIFF NO %; MEAN CORPUS HGB CONC 32.8 g/dL (32.0-36.0); MEAN CORPUSCULAR HEMOGLOB 29.3 pg (26.0-34.0); MEAN CORPUSCULAR VOLUME 89.2 fL (80-100); MONOCYTES 8.3 %; MONOCYTES ABSOLUTE 0.85 10/3/uL (0.21-1.20); NEUTROPHILS 84.1 %; NEUTROPHILS ABSOLUTE 8.61 10/3/uL (2.02-8.40); PLATELET COUNT 227 10/3/uL (150-400); RBC DISTRIBUTION WIDTH 15.7 % (12.0-16.0); RED CELL COUNT 5.02 10/6/uL (4.7-6.1); WHITE BLOOD CELLS 10.2 10/3/uL (4.5-10.5)
[2016-09-21 05:52] LABS: ALBUMIN 1.9 G/DL (3.5-5.0); CALCIUM, SERUM 7.1 MG/DL (8.5-10.4); CHLORIDE, SERUM 102 MMOL/L (96-112); CO2 (CARBON DIOXIDE) 20 MMOL/L (24-34); SODIUM, SERUM 131 MMOL/L (135-148)
[2016-09-21 05:54] LABS: BUN (BLOOD UREA NITROGEN) 44 MG/DL (6-23); CREATININE 3.73 MG/DL (0.70-1.30); GFR AFRICAN AMERICAN 17 ML/MIN (>=60); GFR NON AFRICAN AMERICAN 15 ML/MIN (>=60); GLUCOSE, SERUM 202 MG/DL (60-99); PHOSPHORUS, SERUM 2.8 MG/DL (2.5-4.5); POTASSIUM, SERUM 4.1 MMOL/L (3.5-5.3)
[2016-09-21 09:51] LABS: INTERNATIONAL NORMAL RATI 1.9 UNITS (-)
[2016-09-21 09:52] LABS: PARTIAL THROMBO TIME 44.9 SEC (22.5-37.2)
[2016-09-21 09:57] LABS: PROTIME (NOT ORD) 21.9 SEC (12.0-14.5)
[2016-09-21 11:20] LABS: HEMOGLOBIN 14.5 g/dL (13.6-17.8); MEAN CORPUSCULAR HEMOGLOB 29.3 pg (26.0-34.0); MEAN CORPUSCULAR VOLUME 88.9 fL (80-100); MEAN PLATELET VOLUME 9.7 fL (9.2-13.0); PLATELET COUNT 199 10/3/uL (150-400); RBC DISTRIBUTION WIDTH 15.9 % (12.0-16.0); RED CELL COUNT 4.95 10/6/uL (4.7-6.1); WHITE BLOOD CELLS 11.1 10/3/uL (4.5-10.5)
[2016-09-21 11:23] LABS: MANUAL DIFF YES %
[2016-09-21 11:35] LABS: CALCIUM, SERUM 7.2 MG/DL (8.5-10.4); CHLORIDE, SERUM 103 MMOL/L (96-112); CO2 (CARBON DIOXIDE) 21 MMOL/L (24-34); GLUCOSE, SERUM 213 MG/DL (60-99); PHOSPHORUS, SERUM 2.4 MG/DL (2.5-4.5); SODIUM, SERUM 134 MMOL/L (135-148)
[2016-09-21 11:36] LABS: BUN (BLOOD UREA NITROGEN) 34 MG/DL (6-23); CREATININE 3.22 MG/DL (0.70-1.30); GFR AFRICAN AMERICAN 21 ML/MIN (>=60); GFR NON AFRICAN AMERICAN 18 ML/MIN (>=60); POTASSIUM, SERUM 4.3 MMOL/L (3.5-5.3)
[2016-09-21 11:45] LABS: BAND NEUTROPHILS 18 %; EOSINOPHILS 1 %; EOSINOPHILS ABSOLUTE (CALC) 0.11 10/3/uL (0.0-0.53); LYMPHOCYTES 5 %; LYMPHOCYTES ABSOLUTE (CALC) 0.56 10/3/uL (0.67-4.30); MONOCYTES 8 %; MONOCYTES ABSOLUTE (CALC) 0.89 10/3/uL (0.21-1.20); NEUTROPHILS ABSOLUTE (CALC) 9.55 10/3/uL (2.02-8.40); PLATELET ESTIMATE ADQ (ADEQUATE); SEGMENTED NEUTROPHIL (0) 68 %; TOTAL NUCLEATED CELLS 100
[2016-09-21 11:46] LABS: TOXIC GRANULATION 1+; VACUOLATED NEUTROPHILES FEW
[2016-09-21 11:47] LABS: MACROCYTES 1+ (5-10/OIF) (0-5/OIF); POLYCHROMASIA 1+ (2-5/OIF) (0-1/OIF)
[2016-09-21 13:27] LABS: BE (BASE EXCESS) -7.6 MEQ/L (0 +/- 2.5); CARBOXYHEMOGLOBIN 1.7 % (0-3); HCO3 (ACTUAL BICARBONATE) 18.8 MEQ/L (23-27); HEMOBLOGIN CONTENT 17.1 G/DL (14-18); INSTRUMENT SERIAL # 8087; METHEMOGLOBIN 0.4 % (0-3); MODE A/C; O2 CONTENT 21.6 VOL% (18-24); PCO2 (CO2 TENSION) 41 MMHG (35-45); PO2 (O2 TENSION) 61 MMHG (79-93); SAMPLE Arterial; TIDAL VOLUME 600 ML; pH 7.28 (7.37-7.43)
[2016-09-21 17:27] LABS: CARBOXYHEMOGLOBIN 1.6 % (0-3); HCO3 (ACTUAL BICARBONATE) 20.3 MEQ/L (23-27); HEMOBLOGIN CONTENT 16.4 G/DL (14-18); INSTRUMENT SERIAL # 8087; METHEMOGLOBIN 0.4 % (0-3); MODE A/C; O2 CONTENT 20.1 VOL% (18-24); PCO2 (CO2 TENSION) 43 MMHG (35-45); PO2 (O2 TENSION) 58 MMHG (79-93); SAMPLE Arterial; TIDAL VOLUME 600 ML; pH 7.29 (7.37-7.43)
[2016-09-21 17:48] LABS: HEMATOCRIT 46.3 % (40.0-51.0); HEMOGLOBIN 15.1 g/dL (13.6-17.8); MANUAL DIFF YES %; MEAN CORPUS HGB CONC 32.6 g/dL (32.0-36.0); MEAN CORPUSCULAR HEMOGLOB 28.8 pg (26.0-34.0); MEAN CORPUSCULAR VOLUME 88.2 fL (80-100); MEAN PLATELET VOLUME 9.5 fL (9.2-13.0); NUCLEATED RED BLOOD CELLS 0.5 /100WBC (0-0); PLATELET COUNT 197 10/3/uL (150-400); RBC DISTRIBUTION WIDTH 15.8 % (12.0-16.0); RED CELL COUNT 5.25 10/6/uL (4.7-6.1); WHITE BLOOD CELLS 9.8 10/3/uL (4.5-10.5)
[2016-09-21 17:53] LABS: BUN (BLOOD UREA NITROGEN) 29 MG/DL (6-23); CALCIUM, SERUM 7.5 MG/DL (8.5-10.4); CHLORIDE, SERUM 101 MMOL/L (96-112); CO2 (CARBON DIOXIDE) 22 MMOL/L (24-34); CREATININE 2.98 MG/DL (0.70-1.30); GFR AFRICAN AMERICAN 23 ML/MIN (>=60); GFR NON AFRICAN AMERICAN 19 ML/MIN (>=60); GLUCOSE, SERUM 213 MG/DL (60-99); POTASSIUM, SERUM 4.3 MMOL/L (3.5-5.3); SODIUM, SERUM 135 MMOL/L (135-148)
[2016-09-21 17:54] LABS: TROPONIN I 1.72 NG/ML (<0.05)
[2016-09-21 18:14] LABS: BAND NEUTROPHILS 8 %; LYMPHOCYTES 3 %; LYMPHOCYTES ABSOLUTE (CALC) 0.29 10/3/uL (0.67-4.30); MONOCYTES 7 %; MONOCYTES ABSOLUTE (CALC) 0.69 10/3/uL (0.21-1.20); NEUTROPHILS ABSOLUTE (CALC) 8.82 10/3/uL (2.02-8.40); SEGMENTED NEUTROPHIL (0) 82 %; TOTAL NUCLEATED CELLS 100
[2016-09-21 18:15] LABS: PLATELET ESTIMATE ADQ (ADEQUATE); RBC MORPHOLOGY NORM (NORMAL)
[2016-09-22 00:47] LABS: HEMATOCRIT 44.1 % (40.0-51.0); HEMOGLOBIN 14.6 g/dL (13.6-17.8); MEAN CORPUS HGB CONC 33.1 g/dL (32.0-36.0); MEAN CORPUSCULAR HEMOGLOB 29.1 pg (26.0-34.0); MEAN PLATELET VOLUME 10.1 fL (9.2-13.0); PLATELET COUNT 179 10/3/uL (150-400); RBC DISTRIBUTION WIDTH 15.9 % (12.0-16.0); RED CELL COUNT 5.01 10/6/uL (4.7-6.1); WHITE BLOOD CELLS 11.5 10/3/uL (4.5-10.5)
[2016-09-22 00:49] LABS: MANUAL DIFF YES %
[2016-09-22 00:59] LABS: CALCIUM, SERUM 7.5 MG/DL (8.5-10.4); CHLORIDE, SERUM 98 MMOL/L (96-112); CO2 (CARBON DIOXIDE) 24 MMOL/L (24-34); CREATININE 2.86 MG/DL (0.70-1.30); GFR AFRICAN AMERICAN 24 ML/MIN (>=60); GFR NON AFRICAN AMERICAN 20 ML/MIN (>=60); GLUCOSE, SERUM 209 MG/DL (60-99); POTASSIUM, SERUM 4.5 MMOL/L (3.5-5.3); SODIUM, SERUM 135 MMOL/L (135-148)
[2016-09-22 01:08] LABS: BUN (BLOOD UREA NITROGEN) 25 MG/DL (6-23); PHOSPHORUS, SERUM 3.2 MG/DL (2.5-4.5)
[2016-09-22 01:20] LABS: BAND NEUTROPHILS 7 %; EOSINOPHILS 1 %; EOSINOPHILS ABSOLUTE (CALC) 0.12 10/3/uL (0.0-0.53); LYMPHOCYTES 5 %; LYMPHOCYTES ABSOLUTE (CALC) 0.58 10/3/uL (0.67-4.30); MONOCYTES 12 %; MONOCYTES ABSOLUTE (CALC) 1.38 10/3/uL (0.21-1.20); NEUTROPHILS ABSOLUTE (CALC) 9.43 10/3/uL (2.02-8.40); PLATELET ESTIMATE ADQ (ADEQUATE); SEGMENTED NEUTROPHIL (0) 75 %; TOTAL NUCLEATED CELLS 100
[2016-09-22 01:21] LABS: RBC MORPHOLOGY NORM (NORMAL)
[2016-09-22 03:27] LABS: INSTRUMENT SERIAL # 35151; PCO2 (CO2 TENSION) 54 MMHG (35-45); pH 7.26 (7.37-7.43)
[2016-09-22 03:28] LABS: BE (BASE EXCESS) -3.9 MEQ/L (0 +/- 2.5); CARBOXYHEMOGLOBIN 0.7 % (0-3); HCO3 (ACTUAL BICARBONATE) 23.9 MEQ/L (23-27); HEMOBLOGIN CONTENT 14.9 G/DL (14-18); METHEMOGLOBIN 0.4 % (0-3); MODE CMV; O2 CONTENT 18.9 VOL% (18-24); OPERATOR ID 23712; PO2 (O2 TENSION) 65 MMHG (79-93); SAMPLE Arterial; TIDAL VOLUME 600 ML
[2016-09-22 05:38] LABS: INTERNATIONAL NORMAL RATI 1.8 UNITS (-); PROTIME (NOT ORD) 20.3 SEC (12.0-14.5)
[2016-09-22 05:47] LABS: BASOPHILS 0.1 %; BASOPHILS ABSOLUTE 0.01 10/3/uL (0.0-0.16); EOSINOPHILS 0.7 %; EOSINOPHILS ABSOLUTE 0.08 10/3/uL (0.0-0.53); HEMATOCRIT 42.9 % (40.0-51.0); HEMOGLOBIN 14.2 g/dL (13.6-17.8); IMMATURE GRANULOCYTES 0.8 %; IMMATURE GRANULOCYTES ABSOLUTE 0.09 10/3/uL (0.0-0.11); LYMPHOCYTES 4.1 %; LYMPHOCYTES ABSOLUTE 0.46 10/3/uL (0.67-4.30); MEAN CORPUS HGB CONC 33.1 g/dL (32.0-36.0); MEAN CORPUSCULAR VOLUME 87.6 fL (80-100); MEAN PLATELET VOLUME 9.5 fL (9.2-13.0); MONOCYTES 9.1 %; MONOCYTES ABSOLUTE 1.02 10/3/uL (0.21-1.20); NEUTROPHILS 85.2 %; NEUTROPHILS ABSOLUTE 9.53 10/3/uL (2.02-8.40); NUCLEATED RED BLOOD CELLS 0.3 /100WBC (0-0); PLATELET COUNT 141 10/3/uL (150-400); RBC DISTRIBUTION WIDTH 16.4 % (12.0-16.0); WHITE BLOOD CELLS 11.2 10/3/uL (4.5-10.5)
[2016-09-22 05:50] LABS: A/G RATIO 0.5 (0.7-1.9); ALBUMIN 1.6 G/DL (3.5-5.0); ALKALINE PHOSPHATASE 609 U/L (45-117); BUN (BLOOD UREA NITROGEN) 22 MG/DL (6-23); CALCIUM, SERUM 7.7 MG/DL (8.5-10.4); CHLORIDE, SERUM 98 MMOL/L (96-112); CO2 (CARBON DIOXIDE) 23 MMOL/L (24-34); CREATININE 2.62 MG/DL (0.70-1.30); GFR AFRICAN AMERICAN 26 ML/MIN (>=60); GFR NON AFRICAN AMERICAN 23 ML/MIN (>=60); GLOBULIN 3.5 G/DL (2.5-4.1); GLUCOSE, SERUM 205 MG/DL (60-99); PHOSPHORUS, SERUM 2.9 MG/DL (2.5-4.5); POTASSIUM, SERUM 4.3 MMOL/L (3.5-5.3); SGOT(AST) 702 U/L (5-40); SGPT(ALT) 354 U/L (5-65); SODIUM, SERUM 134 MMOL/L (135-148); TOTAL BILIRUBIN 11.6 MG/DL (0-1.2); TOTAL PROTEIN 5.1 G/DL (6.0-8.5)
[2016-09-22 05:52] LABS: MANUAL DIFF NO %
[2016-09-22 06:26] LABS: PROCALCITONIN 16.74 ng/mL (<0.5)
[2016-09-22 11:55] LABS: BASOPHILS 0.1 %; BASOPHILS ABSOLUTE 0.01 10/3/uL (0.0-0.16); EOSINOPHILS 1.4 %; EOSINOPHILS ABSOLUTE 0.13 10/3/uL (0.0-0.53); HEMATOCRIT 41.4 % (40.0-51.0); HEMOGLOBIN 14.1 g/dL (13.6-17.8); IMMATURE GRANULOCYTES 1.2 %; IMMATURE GRANULOCYTES ABSOLUTE 0.11 10/3/uL (0.0-0.11); LYMPHOCYTES 4.6 %; LYMPHOCYTES ABSOLUTE 0.43 10/3/uL (0.67-4.30); MEAN CORPUS HGB CONC 34.1 g/dL (32.0-36.0); MEAN CORPUSCULAR HEMOGLOB 29.3 pg (26.0-34.0); MEAN CORPUSCULAR VOLUME 86.1 fL (80-100); MEAN PLATELET VOLUME 9.5 fL (9.2-13.0); MONOCYTES ABSOLUTE 0.94 10/3/uL (0.21-1.20); NEUTROPHILS 82.7 %; NEUTROPHILS ABSOLUTE 7.74 10/3/uL (2.02-8.40); PLATELET COUNT 140 10/3/uL (150-400); RBC DISTRIBUTION WIDTH 16.6 % (12.0-16.0); RED CELL COUNT 4.81 10/6/uL (4.7-6.1); WHITE BLOOD CELLS 9.4 10/3/uL (4.5-10.5)
[2016-09-22 11:57] LABS: MANUAL DIFF NO %
[2016-09-22 12:05] LABS: BUN (BLOOD UREA NITROGEN) 20 MG/DL (6-23); CHLORIDE, SERUM 99 MMOL/L (96-112); CO2 (CARBON DIOXIDE) 24 MMOL/L (24-34); CREATININE 2.32 MG/DL (0.70-1.30); GFR AFRICAN AMERICAN 30 ML/MIN (>=60); GFR NON AFRICAN AMERICAN 26 ML/MIN (>=60); GLUCOSE, SERUM 192 MG/DL (60-99); PHOSPHORUS, SERUM 2.9 MG/DL (2.5-4.5); POTASSIUM, SERUM 4.5 MMOL/L (3.5-5.3); SODIUM, SERUM 134 MMOL/L (135-148)
[2016-09-22 17:51] LABS: BASOPHILS 0.1 %; BASOPHILS ABSOLUTE 0.01 10/3/uL (0.0-0.16); EOSINOPHILS 1.7 %; EOSINOPHILS ABSOLUTE 0.15 10/3/uL (0.0-0.53); HEMATOCRIT 41.2 % (40.0-51.0); HEMOGLOBIN 13.8 g/dL (13.6-17.8); IMMATURE GRANULOCYTES 1.2 %; IMMATURE GRANULOCYTES ABSOLUTE 0.11 10/3/uL (0.0-0.11); LYMPHOCYTES 3.5 %; LYMPHOCYTES ABSOLUTE 0.31 10/3/uL (0.67-4.30); MEAN CORPUS HGB CONC 33.5 g/dL (32.0-36.0); MEAN CORPUSCULAR HEMOGLOB 28.8 pg (26.0-34.0); MEAN CORPUSCULAR VOLUME 85.8 fL (80-100); MONOCYTES 10.8 %; MONOCYTES ABSOLUTE 0.96 10/3/uL (0.21-1.20); NEUTROPHILS 82.7 %; NEUTROPHILS ABSOLUTE 7.36 10/3/uL (2.02-8.40); PLATELET COUNT 137 10/3/uL (150-400); RBC DISTRIBUTION WIDTH 16.7 % (12.0-16.0); WHITE BLOOD CELLS 8.9 10/3/uL (4.5-10.5)
[2016-09-22 17:52] LABS: MANUAL DIFF NO %
[2016-09-22 18:00] LABS: BUN (BLOOD UREA NITROGEN) 19 MG/DL (6-23); CALCIUM, SERUM 8.4 MG/DL (8.5-10.4); CHLORIDE, SERUM 98 MMOL/L (96-112); CO2 (CARBON DIOXIDE) 26 MMOL/L (24-34); CREATININE 2.27 MG/DL (0.70-1.30); GFR AFRICAN AMERICAN 31 ML/MIN (>=60); GFR NON AFRICAN AMERICAN 27 ML/MIN (>=60); GLUCOSE, SERUM 165 MG/DL (60-99); POTASSIUM, SERUM 4.3 MMOL/L (3.5-5.3); SODIUM, SERUM 130 MMOL/L (135-148)
[2016-09-23 01:38] LABS: BASOPHILS 0.1 %; BASOPHILS ABSOLUTE 0.01 10/3/uL (0.0-0.16); EOSINOPHILS 2.2 %; EOSINOPHILS ABSOLUTE 0.19 10/3/uL (0.0-0.53); HEMATOCRIT 39.7 % (40.0-51.0); HEMOGLOBIN 13.6 g/dL (13.6-17.8); IMMATURE GRANULOCYTES 1.8 %; IMMATURE GRANULOCYTES ABSOLUTE 0.16 10/3/uL (0.0-0.11); LYMPHOCYTES 4.7 %; LYMPHOCYTES ABSOLUTE 0.41 10/3/uL (0.67-4.30); MEAN CORPUS HGB CONC 34.3 g/dL (32.0-36.0); MEAN CORPUSCULAR HEMOGLOB 29.6 pg (26.0-34.0); MEAN CORPUSCULAR VOLUME 86.3 fL (80-100); MEAN PLATELET VOLUME 9.6 fL (9.2-13.0); MONOCYTES 8.4 %; MONOCYTES ABSOLUTE 0.74 10/3/uL (0.21-1.20); NEUTROPHILS 82.8 %; NEUTROPHILS ABSOLUTE 7.27 10/3/uL (2.02-8.40); PLATELET COUNT 123 10/3/uL (150-400); RBC DISTRIBUTION WIDTH 16.6 % (12.0-16.0); WHITE BLOOD CELLS 8.8 10/3/uL (4.5-10.5)
[2016-09-23 01:42] LABS: MANUAL DIFF NO %
[2016-09-23 01:52] LABS: BUN (BLOOD UREA NITROGEN) 18 MG/DL (6-23); CALCIUM, SERUM 8.4 MG/DL (8.5-10.4); CHLORIDE, SERUM 98 MMOL/L (96-112); CO2 (CARBON DIOXIDE) 27 MMOL/L (24-34); CREATININE 2.14 MG/DL (0.70-1.30); GFR AFRICAN AMERICAN 34 ML/MIN (>=60); GFR NON AFRICAN AMERICAN 29 ML/MIN (>=60); GLUCOSE, SERUM 124 MG/DL (60-99); PHOSPHORUS, SERUM 2.2 MG/DL (2.5-4.5); POTASSIUM, SERUM 4.6 MMOL/L (3.5-5.3); SODIUM, SERUM 135 MMOL/L (135-148)
[2016-09-23 04:02] LABS: BE (BASE EXCESS) -0.1 MEQ/L (0 +/- 2.5); CARBOXYHEMOGLOBIN 0.6 % (0-3); HCO3 (ACTUAL BICARBONATE) 26.4 MEQ/L (23-27); HEMOBLOGIN CONTENT 14.7 G/DL (14-18); INSTRUMENT SERIAL # 35151; METHEMOGLOBIN 0.3 % (0-3); MODE CMV; O2 CONTENT 19.4 VOL% (18-24); PCO2 (CO2 TENSION) 50 MMHG (35-45); PO2 (O2 TENSION) 74 MMHG (79-93); SAMPLE Arterial; TIDAL VOLUME 650 ML; pH 7.34 (7.37-7.43)
[2016-09-23 05:19] LABS: BASOPHILS 0 %; EOSINOPHILS 2.5 %; HEMOGLOBIN 13.3 g/dL (13.6-17.8); IMMATURE GRANULOCYTES 2.3 %; IMMATURE GRANULOCYTES ABSOLUTE 0.19 10/3/uL (0.0-0.11); LYMPHOCYTES 4.5 %; LYMPHOCYTES ABSOLUTE 0.37 10/3/uL (0.67-4.30); MEAN CORPUS HGB CONC 34.1 g/dL (32.0-36.0); MEAN CORPUSCULAR HEMOGLOB 29.1 pg (26.0-34.0); MEAN CORPUSCULAR VOLUME 85.3 fL (80-100); MEAN PLATELET VOLUME 9.4 fL (9.2-13.0); MONOCYTES 7.8 %; MONOCYTES ABSOLUTE 0.64 10/3/uL (0.21-1.20); NEUTROPHILS 82.9 %; NEUTROPHILS ABSOLUTE 6.76 10/3/uL (2.02-8.40); PLATELET COUNT 109 10/3/uL (150-400); RBC DISTRIBUTION WIDTH 16.8 % (12.0-16.0); RED CELL COUNT 4.57 10/6/uL (4.7-6.1); WHITE BLOOD CELLS 8.2 10/3/uL (4.5-10.5)
[2016-09-23 05:20] LABS: MANUAL DIFF NO %
[2016-09-23 05:45] LABS: A/G RATIO 0.4 (0.7-1.9); ALBUMIN 1.4 G/DL (3.5-5.0); ALKALINE PHOSPHATASE 568 U/L (45-117); BUN (BLOOD UREA NITROGEN) 17 MG/DL (6-23); CALCIUM, SERUM 8.6 MG/DL (8.5-10.4); CHLORIDE, SERUM 99 MMOL/L (96-112); CO2 (CARBON DIOXIDE) 26 MMOL/L (24-34); CREATININE 2.09 MG/DL (0.70-1.30); GFR AFRICAN AMERICAN 35 ML/MIN (>=60); GFR NON AFRICAN AMERICAN 30 ML/MIN (>=60); GLOBULIN 3.3 G/DL (2.5-4.1); GLUCOSE, SERUM 130 MG/DL (60-99); PHOSPHORUS, SERUM 2.2 MG/DL (2.5-4.5); POTASSIUM, SERUM 4.4 MMOL/L (3.5-5.3); SGOT(AST) 617 U/L (5-40); SGPT(ALT) 270 U/L (5-65); SODIUM, SERUM 132 MMOL/L (135-148); TOTAL BILIRUBIN 11.9 MG/DL (0-1.2); TOTAL PROTEIN 4.7 G/DL (6.0-8.5); TROPONIN I 1.14 NG/ML (<0.05)
[2016-09-23 12:42] LABS: BASOPHILS 0.1 %; BASOPHILS ABSOLUTE 0.01 10/3/uL (0.0-0.16); EOSINOPHILS 2.1 %; EOSINOPHILS ABSOLUTE 0.15 10/3/uL (0.0-0.53); HEMATOCRIT 39.2 % (40.0-51.0); HEMOGLOBIN 13.5 g/dL (13.6-17.8); IMMATURE GRANULOCYTES 1.6 %; IMMATURE GRANULOCYTES ABSOLUTE 0.11 10/3/uL (0.0-0.11); LYMPHOCYTES 4.1 %; LYMPHOCYTES ABSOLUTE 0.29 10/3/uL (0.67-4.30); MEAN CORPUS HGB CONC 34.4 g/dL (32.0-36.0); MEAN CORPUSCULAR HEMOGLOB 29.3 pg (26.0-34.0); MEAN PLATELET VOLUME 9.7 fL (9.2-13.0); MONOCYTES 7.6 %; MONOCYTES ABSOLUTE 0.53 10/3/uL (0.21-1.20); NEUTROPHILS 84.5 %; NEUTROPHILS ABSOLUTE 5.92 10/3/uL (2.02-8.40); NUCLEATED RED BLOOD CELLS 0.4 /100WBC (0-0); PLATELET COUNT 101 10/3/uL (150-400); RED CELL COUNT 4.61 10/6/uL (4.7-6.1)
[2016-09-23 12:43] LABS: MANUAL DIFF NO %
[2016-09-23 12:51] LABS: BUN (BLOOD UREA NITROGEN) 17 MG/DL (6-23); CALCIUM, SERUM 8.1 MG/DL (8.5-10.4); CHLORIDE, SERUM 99 MMOL/L (96-112); CO2 (CARBON DIOXIDE) 27 MMOL/L (24-34); CREATININE 2.22 MG/DL (0.70-1.30); GFR AFRICAN AMERICAN 32 ML/MIN (>=60); GFR NON AFRICAN AMERICAN 28 ML/MIN (>=60); GLUCOSE, SERUM 131 MG/DL (60-99); PHOSPHORUS, SERUM 2.6 MG/DL (2.5-4.5); POTASSIUM, SERUM 4.7 MMOL/L (3.5-5.3); SODIUM, SERUM 134 MMOL/L (135-148)
[2016-09-23 18:22] LABS: BASOPHILS 0.1 %; BASOPHILS ABSOLUTE 0.01 10/3/uL (0.0-0.16); EOSINOPHILS 1.9 %; EOSINOPHILS ABSOLUTE 0.14 10/3/uL (0.0-0.53); HEMATOCRIT 38.7 % (40.0-51.0); HEMOGLOBIN 13.3 g/dL (13.6-17.8); IMMATURE GRANULOCYTES 1.5 %; IMMATURE GRANULOCYTES ABSOLUTE 0.11 10/3/uL (0.0-0.11); LYMPHOCYTES 5.1 %; LYMPHOCYTES ABSOLUTE 0.38 10/3/uL (0.67-4.30); MEAN CORPUS HGB CONC 34.4 g/dL (32.0-36.0); MEAN CORPUSCULAR HEMOGLOB 29.1 pg (26.0-34.0); MEAN CORPUSCULAR VOLUME 84.7 fL (80-100); MEAN PLATELET VOLUME 10.5 fL (9.2-13.0); MONOCYTES 6.5 %; MONOCYTES ABSOLUTE 0.48 10/3/uL (0.21-1.20); NEUTROPHILS 84.9 %; NEUTROPHILS ABSOLUTE 6.32 10/3/uL (2.02-8.40); PLATELET COUNT 103 10/3/uL (150-400); RBC DISTRIBUTION WIDTH 16.9 % (12.0-16.0); RED CELL COUNT 4.57 10/6/uL (4.7-6.1); WHITE BLOOD CELLS 7.4 10/3/uL (4.5-10.5)
[2016-09-23 18:26] LABS: MANUAL DIFF NO %
[2016-09-23 18:35] LABS: BUN (BLOOD UREA NITROGEN) 18 MG/DL (6-23); CALCIUM, SERUM 7.6 MG/DL (8.5-10.4); CHLORIDE, SERUM 99 MMOL/L (96-112); CO2 (CARBON DIOXIDE) 27 MMOL/L (24-34); CREATININE 2.07 MG/DL (0.70-1.30); GFR AFRICAN AMERICAN 35 ML/MIN (>=60); GFR NON AFRICAN AMERICAN 30 ML/MIN (>=60); GLUCOSE, SERUM 136 MG/DL (60-99); POTASSIUM, SERUM 4.5 MMOL/L (3.5-5.3); SODIUM, SERUM 134 MMOL/L (135-148)
[2016-09-24 01:05] LABS: BASOPHILS 0.1 %; BASOPHILS ABSOLUTE 0.01 10/3/uL (0.0-0.16); EOSINOPHILS 2.6 %; EOSINOPHILS ABSOLUTE 0.21 10/3/uL (0.0-0.53); HEMATOCRIT 39.4 % (40.0-51.0); HEMOGLOBIN 13.3 g/dL (13.6-17.8); IMMATURE GRANULOCYTES 1.5 %; IMMATURE GRANULOCYTES ABSOLUTE 0.12 10/3/uL (0.0-0.11); LYMPHOCYTES 4.9 %; LYMPHOCYTES ABSOLUTE 0.39 10/3/uL (0.67-4.30); MANUAL DIFF NO %; MEAN CORPUS HGB CONC 33.8 g/dL (32.0-36.0); MEAN CORPUSCULAR HEMOGLOB 28.7 pg (26.0-34.0); MEAN CORPUSCULAR VOLUME 85.1 fL (80-100); MEAN PLATELET VOLUME 10.6 fL (9.2-13.0); MONOCYTES ABSOLUTE 0.56 10/3/uL (0.21-1.20); NEUTROPHILS 83.9 %; NEUTROPHILS ABSOLUTE 6.66 10/3/uL (2.02-8.40); NUCLEATED RED BLOOD CELLS 0.4 /100WBC (0-0); PLATELET COUNT 101 10/3/uL (150-400); RED CELL COUNT 4.63 10/6/uL (4.7-6.1)
[2016-09-24 01:13] LABS: BUN (BLOOD UREA NITROGEN) 17 MG/DL (6-23); CALCIUM, SERUM 8.1 MG/DL (8.5-10.4); CHLORIDE, SERUM 98 MMOL/L (96-112); CO2 (CARBON DIOXIDE) 27 MMOL/L (24-34); CREATININE 2.08 MG/DL (0.70-1.30); GFR AFRICAN AMERICAN 35 ML/MIN (>=60); GFR NON AFRICAN AMERICAN 30 ML/MIN (>=60); GLUCOSE, SERUM 131 MG/DL (60-99); PHOSPHORUS, SERUM 2.7 MG/DL (2.5-4.5); POTASSIUM, SERUM 4.6 MMOL/L (3.5-5.3); SODIUM, SERUM 133 MMOL/L (135-148)
[2016-09-24 04:03] LABS: BE (BASE EXCESS) -0.5 MEQ/L (0 +/- 2.5); CARBOXYHEMOGLOBIN 0.9 % (0-3); HCO3 (ACTUAL BICARBONATE) 25.2 MEQ/L (23-27); HEMOBLOGIN CONTENT 14.1 G/DL (14-18); INSTRUMENT SERIAL # 35151; METHEMOGLOBIN 0.3 % (0-3); MODE CMV; O2 CONTENT 18.7 VOL% (18-24); PCO2 (CO2 TENSION) 45 MMHG (35-45); PO2 (O2 TENSION) 79 MMHG (79-93); SAMPLE Arterial; TIDAL VOLUME 650 ML; pH 7.36 (7.37-7.43)
[2016-09-24 05:41] LABS: INTERNATIONAL NORMAL RATI 1.3 UNITS (-)
[2016-09-24 05:42] LABS: HEMOGLOBIN 13.4 g/dL (13.6-17.8); MEAN CORPUS HGB CONC 34.4 g/dL (32.0-36.0); MEAN CORPUSCULAR HEMOGLOB 29.2 pg (26.0-34.0); MEAN PLATELET VOLUME 10.2 fL (9.2-13.0); NUCLEATED RED BLOOD CELLS 0.4 /100WBC (0-0); PLATELET COUNT 88 10/3/uL (150-400); RED CELL COUNT 4.59 10/6/uL (4.7-6.1); WHITE BLOOD CELLS 8.3 10/3/uL (4.5-10.5)
[2016-09-24 05:43] LABS: MANUAL DIFF YES %
[2016-09-24 05:58] LABS: A/G RATIO 0.4 (0.7-1.9); ALBUMIN 1.4 G/DL (3.5-5.0); BUN (BLOOD UREA NITROGEN) 19 MG/DL (6-23); CALCIUM, SERUM 8.6 MG/DL (8.5-10.4); CHLORIDE, SERUM 98 MMOL/L (96-112); CO2 (CARBON DIOXIDE) 26 MMOL/L (24-34); CREATININE 2.07 MG/DL (0.70-1.30); GFR AFRICAN AMERICAN 35 ML/MIN (>=60); GFR NON AFRICAN AMERICAN 30 ML/MIN (>=60); GLOBULIN 3.6 G/DL (2.5-4.1); GLUCOSE, SERUM 128 MG/DL (60-99); PHOSPHORUS, SERUM 2.7 MG/DL (2.5-4.5); POTASSIUM, SERUM 4.3 MMOL/L (3.5-5.3); SGOT(AST) 950 U/L (5-40); SGPT(ALT) 298 U/L (5-65); SODIUM, SERUM 133 MMOL/L (135-148)
[2016-09-24 06:01] LABS: ALKALINE PHOSPHATASE 741 U/L (45-117); TOTAL BILIRUBIN 13.4 MG/DL (0-1.2)
[2016-09-24 06:13] LABS: BAND NEUTROPHILS 4 %; EOSINOPHILS 1 %; EOSINOPHILS ABSOLUTE (CALC) 0.08 10/3/uL (0.0-0.53); IMMATURE GRANS ABSOLUTE (CALC) 0.25 10/3/uL (0.0-0.11); LYMPHOCYTES 2 %; LYMPHOCYTES ABSOLUTE (CALC) 0.17 10/3/uL (0.67-4.30); METAMYELOCYTES 3 %; MONOCYTES 3 %; MONOCYTES ABSOLUTE (CALC) 0.25 10/3/uL (0.21-1.20); NEUTROPHILS ABSOLUTE (CALC) 7.55 10/3/uL (2.02-8.40); PLATELET ESTIMATE DEC (ADEQUATE); PROCALCITONIN 9.55 ng/mL (<0.5); RBC MORPHOLOGY NORM (NORMAL); SEGMENTED NEUTROPHIL (0) 87 %; TOTAL NUCLEATED CELLS 100
[2016-09-24 11:58] LABS: HEMOGLOBIN 13.2 g/dL (13.6-17.8); MEAN CORPUS HGB CONC 33.8 g/dL (32.0-36.0); MEAN CORPUSCULAR HEMOGLOB 28.9 pg (26.0-34.0); MEAN CORPUSCULAR VOLUME 85.3 fL (80-100); MEAN PLATELET VOLUME 10.2 fL (9.2-13.0); PLATELET COUNT 76 10/3/uL (150-400); RBC DISTRIBUTION WIDTH 17.1 % (12.0-16.0); RED CELL COUNT 4.57 10/6/uL (4.7-6.1); WHITE BLOOD CELLS 9.3 10/3/uL (4.5-10.5)
[2016-09-24 11:59] LABS: MANUAL DIFF YES %
[2016-09-24 12:10] LABS: BUN (BLOOD UREA NITROGEN) 21 MG/DL (6-23); CALCIUM, SERUM 8.8 MG/DL (8.5-10.4); CHLORIDE, SERUM 99 MMOL/L (96-112); CO2 (CARBON DIOXIDE) 27 MMOL/L (24-34); CREATININE 2.14 MG/DL (0.70-1.30); GFR AFRICAN AMERICAN 34 ML/MIN (>=60); GFR NON AFRICAN AMERICAN 29 ML/MIN (>=60); GLUCOSE, SERUM 127 MG/DL (60-99); PHOSPHORUS, SERUM 2.7 MG/DL (2.5-4.5); POTASSIUM, SERUM 4.3 MMOL/L (3.5-5.3); SODIUM, SERUM 133 MMOL/L (135-148)
[2016-09-24 12:39] LABS: ANISOCYTOSIS 1+ (5-10/OIF) (0-5/OIF); BAND NEUTROPHILS 3 %; EOSINOPHILS 5 %; EOSINOPHILS ABSOLUTE (CALC) 0.47 10/3/uL (0.0-0.53); LYMPHOCYTES 4 %; LYMPHOCYTES ABSOLUTE (CALC) 0.37 10/3/uL (0.67-4.30); NEUTROPHILS ABSOLUTE (CALC) 8.46 10/3/uL (2.02-8.40); PLATELET ESTIMATE DEC (ADEQUATE); SEGMENTED NEUTROPHIL (0) 88 %; TOTAL NUCLEATED CELLS 100
[2016-09-24 18:06] LABS: HEMOGLOBIN 13.7 g/dL (13.6-17.8); MEAN CORPUS HGB CONC 34.3 g/dL (32.0-36.0); MEAN CORPUSCULAR HEMOGLOB 29.1 pg (26.0-34.0); MEAN CORPUSCULAR VOLUME 84.9 fL (80-100); MEAN PLATELET VOLUME 10.4 fL (9.2-13.0); PLATELET COUNT 82 10/3/uL (150-400); RBC DISTRIBUTION WIDTH 17.2 % (12.0-16.0); RED CELL COUNT 4.71 10/6/uL (4.7-6.1); WHITE BLOOD CELLS 11.3 10/3/uL (4.5-10.5)
[2016-09-24 18:07] LABS: MANUAL DIFF YES %
[2016-09-24 18:16] LABS: BUN (BLOOD UREA NITROGEN) 20 MG/DL (6-23); CALCIUM, SERUM 8.5 MG/DL (8.5-10.4); CHLORIDE, SERUM 104 MMOL/L (96-112); CO2 (CARBON DIOXIDE) 24 MMOL/L (24-34); CREATININE 2.02 MG/DL (0.70-1.30); GFR AFRICAN AMERICAN 36 ML/MIN (>=60); GFR NON AFRICAN AMERICAN 31 ML/MIN (>=60); GLUCOSE, SERUM 130 MG/DL (60-99); POTASSIUM, SERUM 4.2 MMOL/L (3.5-5.3); SODIUM, SERUM 129 MMOL/L (135-148)
[2016-09-24 19:33] LABS: BAND NEUTROPHILS 18 %; EOSINOPHILS 4 %; EOSINOPHILS ABSOLUTE (CALC) 0.45 10/3/uL (0.0-0.53); IMMATURE GRANS ABSOLUTE (CALC) 0.11 10/3/uL (0.0-0.11); LYMPHOCYTES 2 %; LYMPHOCYTES ABSOLUTE (CALC) 0.23 10/3/uL (0.67-4.30); METAMYELOCYTES 1 %; MONOCYTES 2 %; MONOCYTES ABSOLUTE (CALC) 0.23 10/3/uL (0.21-1.20); NEUTROPHILS ABSOLUTE (CALC) 10.28 10/3/uL (2.02-8.40); SEGMENTED NEUTROPHIL (0) 73 %; TOTAL NUCLEATED CELLS 100
[2016-09-24 19:34] LABS: ANISOCYTOSIS 1+ (5-10/OIF) (0-5/OIF); PLATELET ESTIMATE DEC (ADEQUATE)
[2016-09-25 00:50] LABS: BUN (BLOOD UREA NITROGEN) 21 MG/DL (6-23); CALCIUM, SERUM 8.6 MG/DL (8.5-10.4); CHLORIDE, SERUM 104 MMOL/L (96-112); CO2 (CARBON DIOXIDE) 23 MMOL/L (24-34); GFR AFRICAN AMERICAN 36 ML/MIN (>=60); GFR NON AFRICAN AMERICAN 31 ML/MIN (>=60); GLUCOSE, SERUM 126 MG/DL (60-99); POTASSIUM, SERUM 4.4 MMOL/L (3.5-5.3)
[2016-09-25 00:53] LABS: SODIUM, SERUM 136 MMOL/L (135-148)
[2016-09-25 01:04] LABS: HEMATOCRIT 40.4 % (40.0-51.0); HEMOGLOBIN 13.7 g/dL (13.6-17.8); MEAN CORPUS HGB CONC 33.9 g/dL (32.0-36.0); MEAN CORPUSCULAR HEMOGLOB 28.8 pg (26.0-34.0); MEAN CORPUSCULAR VOLUME 85.1 fL (80-100); MEAN PLATELET VOLUME 10.9 fL (9.2-13.0); NUCLEATED RED BLOOD CELLS 0.4 /100WBC (0-0); PLATELET COUNT 78 10/3/uL (150-400); RBC DISTRIBUTION WIDTH 17.1 % (12.0-16.0); RED CELL COUNT 4.75 10/6/uL (4.7-6.1); WHITE BLOOD CELLS 12.8 10/3/uL (4.5-10.5)
[2016-09-25 01:05] LABS: MANUAL DIFF YES %
[2016-09-25 02:20] LABS: ANISOCYTOSIS 1+ (5-10/OIF) (0-5/OIF); BAND NEUTROPHILS 5 %; EOSINOPHILS 5 %; EOSINOPHILS ABSOLUTE (CALC) 0.64 10/3/uL (0.0-0.53); LYMPHOCYTES 5 %; LYMPHOCYTES ABSOLUTE (CALC) 0.64 10/3/uL (0.67-4.30); MONOCYTES 5 %; MONOCYTES ABSOLUTE (CALC) 0.64 10/3/uL (0.21-1.20); NEUTROPHILS ABSOLUTE (CALC) 10.88 10/3/uL (2.02-8.40); SEGMENTED NEUTROPHIL (0) 80 %; TOTAL NUCLEATED CELLS 100
[2016-09-25 02:21] LABS: PLATELET ESTIMATE DEC (ADEQUATE)
[2016-09-25 03:39] LABS: BE (BASE EXCESS) -4.9 MEQ/L (0 +/- 2.5); CARBOXYHEMOGLOBIN 1.2 % (0-3); HCO3 (ACTUAL BICARBONATE) 21.5 MEQ/L (23-27); HEMOBLOGIN CONTENT 14.9 G/DL (14-18); INSTRUMENT SERIAL # 35151; METHEMOGLOBIN 0.3 % (0-3); MODE CMV; O2 CONTENT 19.3 VOL% (18-24); OPERATOR ID 13861; PCO2 (CO2 TENSION) 45 MMHG (35-45); PO2 (O2 TENSION) 72 MMHG (79-93); SAMPLE Arterial; TIDAL VOLUME 650 ML
[2016-09-25 05:51] LABS: INTERNATIONAL NORMAL RATI 1.3 UNITS (-); PROTIME (NOT ORD) 16.5 SEC (12.0-14.5)
[2016-09-25 05:52] LABS: HEMATOCRIT 40.7 % (40.0-51.0); MANUAL DIFF YES %; MEAN CORPUS HGB CONC 34.4 g/dL (32.0-36.0); MEAN CORPUSCULAR HEMOGLOB 29.3 pg (26.0-34.0); MEAN CORPUSCULAR VOLUME 85.1 fL (80-100); MEAN PLATELET VOLUME 10.9 fL (9.2-13.0); NUCLEATED RED BLOOD CELLS 0.2 /100WBC (0-0); PLATELET COUNT 87 10/3/uL (150-400); RBC DISTRIBUTION WIDTH 17.3 % (12.0-16.0); RED CELL COUNT 4.78 10/6/uL (4.7-6.1); WHITE BLOOD CELLS 15.6 10/3/uL (4.5-10.5)
[2016-09-25 06:07] LABS: A/G RATIO 0.3 (0.7-1.9); ALBUMIN 1.3 G/DL (3.5-5.0); BUN (BLOOD UREA NITROGEN) 22 MG/DL (6-23); CALCIUM, SERUM 8.3 MG/DL (8.5-10.4); CHLORIDE, SERUM 103 MMOL/L (96-112); CO2 (CARBON DIOXIDE) 22 MMOL/L (24-34); GFR AFRICAN AMERICAN 36 ML/MIN (>=60); GFR NON AFRICAN AMERICAN 31 ML/MIN (>=60); GLOBULIN 4.1 G/DL (2.5-4.1); GLUCOSE, SERUM 126 MG/DL (60-99); PHOSPHORUS, SERUM 2.1 MG/DL (2.5-4.5); POTASSIUM, SERUM 4.4 MMOL/L (3.5-5.3); SGPT(ALT) 428 U/L (5-65); SODIUM, SERUM 135 MMOL/L (135-148); TOTAL PROTEIN 5.4 G/DL (6.0-8.5)
[2016-09-25 06:19] LABS: ALKALINE PHOSPHATASE 988 U/L (45-117); TOTAL BILIRUBIN 16.6 MG/DL (0-1.2)
[2016-09-25 06:20] LABS: SGOT(AST) 1704 U/L (5-40)
[2016-09-25 06:29] LABS: BAND NEUTROPHILS 5 %; EOSINOPHILS 4 %; EOSINOPHILS ABSOLUTE (CALC) 0.62 10/3/uL (0.0-0.53); IMMATURE GRANS ABSOLUTE (CALC) 0.16 10/3/uL (0.0-0.11); LYMPHOCYTES 1 %; LYMPHOCYTES ABSOLUTE (CALC) 0.16 10/3/uL (0.67-4.30); MONOCYTES 1 %; MONOCYTES ABSOLUTE (CALC) 0.16 10/3/uL (0.21-1.20); MYELOCYTES 1 %; NEUTROPHILS ABSOLUTE (CALC) 14.51 10/3/uL (2.02-8.40); PLATELET ESTIMATE DEC (ADEQUATE); SEGMENTED NEUTROPHIL (0) 88 %; TOTAL NUCLEATED CELLS 100
[2016-09-25 06:30] LABS: GIANT PLATELET RARE; RBC MORPHOLOGY NORM (NORMAL)
[2016-09-25 12:36] LABS: BUN (BLOOD UREA NITROGEN) 21 MG/DL (6-23); CHLORIDE, SERUM 104 MMOL/L (96-112); CO2 (CARBON DIOXIDE) 22 MMOL/L (24-34); CREATININE 1.99 MG/DL (0.70-1.30); GFR AFRICAN AMERICAN 37 ML/MIN (>=60); GFR NON AFRICAN AMERICAN 32 ML/MIN (>=60); GLUCOSE, SERUM 119 MG/DL (60-99); POTASSIUM, SERUM 4.4 MMOL/L (3.5-5.3); SODIUM, SERUM 133 MMOL/L (135-148)
[2016-09-25 12:37] LABS: PHOSPHORUS, SERUM 3.5 MG/DL (2.5-4.5)
[2016-09-25 12:45] LABS: HEMATOCRIT 40.8 % (40.0-51.0); HEMOGLOBIN 13.8 g/dL (13.6-17.8); MEAN CORPUS HGB CONC 33.8 g/dL (32.0-36.0); MEAN CORPUSCULAR HEMOGLOB 28.9 pg (26.0-34.0); MEAN CORPUSCULAR VOLUME 85.5 fL (80-100); MEAN PLATELET VOLUME 10.8 fL (9.2-13.0); NUCLEATED RED BLOOD CELLS 0.4 /100WBC (0-0); PLATELET COUNT 92 10/3/uL (150-400); RBC DISTRIBUTION WIDTH 17.4 % (12.0-16.0); RED CELL COUNT 4.77 10/6/uL (4.7-6.1); WHITE BLOOD CELLS 15.8 10/3/uL (4.5-10.5)
[2016-09-25 12:48] LABS: MANUAL DIFF YES %
[2016-09-25 13:09] LABS: BAND NEUTROPHILS 16 %; EOSINOPHILS 4 %; EOSINOPHILS ABSOLUTE (CALC) 0.63 10/3/uL (0.0-0.53); IMMATURE GRANS ABSOLUTE (CALC) 0.16 10/3/uL (0.0-0.11); LYMPHOCYTES 3 %; LYMPHOCYTES ABSOLUTE (CALC) 0.47 10/3/uL (0.67-4.30); METAMYELOCYTES 1 %; MONOCYTES 1 %; MONOCYTES ABSOLUTE (CALC) 0.16 10/3/uL (0.21-1.20); NEUTROPHILS ABSOLUTE (CALC) 14.38 10/3/uL (2.02-8.40); SEGMENTED NEUTROPHIL (0) 75 %; TOTAL NUCLEATED CELLS 100
[2016-09-25 13:10] LABS: ANISOCYTOSIS 1+ (5-10/OIF) (0-5/OIF); PLATELET ESTIMATE DEC (ADEQUATE); POLYCHROMASIA 1+ (2-5/OIF) (0-1/OIF)
[2016-09-25 13:13] LABS: GIANT PLATELET FEW
[2016-09-25 19:18] LABS: BE (BASE EXCESS) -7.7 MEQ/L (0 +/- 2.5); CARBOXYHEMOGLOBIN 1.1 % (0-3); HCO3 (ACTUAL BICARBONATE) 19.1 MEQ/L (23-27); HEMOBLOGIN CONTENT 13.6 G/DL (14-18); INSTRUMENT SERIAL # 35151; METHEMOGLOBIN 0.5 % (0-3); MODE CMV; OPERATOR ID 31061; PCO2 (CO2 TENSION) 44 MMHG (35-45); PO2 (O2 TENSION) 84 MMHG (79-93); SAMPLE Arterial; TIDAL VOLUME 650 ML; pH 7.26 (7.37-7.43)
[2016-09-25 19:34] LABS: HEMOGLOBIN 12.6 g/dL (13.6-17.8); MEAN CORPUS HGB CONC 34.3 g/dL (32.0-36.0); MEAN CORPUSCULAR VOLUME 84.6 fL (80-100); NUCLEATED RED BLOOD CELLS 0.4 /100WBC (0-0); PLATELET COUNT 111 10/3/uL (150-400); RBC DISTRIBUTION WIDTH 17.4 % (12.0-16.0); RED CELL COUNT 4.34 10/6/uL (4.7-6.1); WHITE BLOOD CELLS 15.4 10/3/uL (4.5-10.5)
[2016-09-25 19:35] LABS: HEMATOCRIT 36.7 % (40.0-51.0); MANUAL DIFF YES %
[2016-09-25 19:47] LABS: BUN (BLOOD UREA NITROGEN) 24 MG/DL (6-23); CALCIUM, SERUM 8.4 MG/DL (8.5-10.4); CHLORIDE, SERUM 105 MMOL/L (96-112); CO2 (CARBON DIOXIDE) 20 MMOL/L (24-34); CREATININE 2.15 MG/DL (0.70-1.30); GFR AFRICAN AMERICAN 33 ML/MIN (>=60); GFR NON AFRICAN AMERICAN 29 ML/MIN (>=60); GLUCOSE, SERUM 119 MG/DL (60-99); POTASSIUM, SERUM 4.4 MMOL/L (3.5-5.3); SODIUM, SERUM 136 MMOL/L (135-148)
[2016-09-25 19:59] LABS: ANISOCYTOSIS 1+ (5-10/OIF) (0-5/OIF); BAND NEUTROPHILS 6 %; BASOPHILS 1 %; BASOPHILS ABSOLUTE (CALC) 0.15 10/3/uL (0.0-0.16); IMMATURE GRANS ABSOLUTE (CALC) 0.15 10/3/uL (0.0-0.11); LYMPHOCYTES 3 %; LYMPHOCYTES ABSOLUTE (CALC) 0.46 10/3/uL (0.67-4.30); MONOCYTES 2 %; MONOCYTES ABSOLUTE (CALC) 0.31 10/3/uL (0.21-1.20); MYELOCYTES 1 %; NEUTROPHILS ABSOLUTE (CALC) 14.32 10/3/uL (2.02-8.40); PLATELET ESTIMATE SLT DEC (ADEQUATE); POIKILOCYTOSIS 1+ (5-10/OIF) (0-5/OIF); SEGMENTED NEUTROPHIL (0) 87 %; TOTAL NUCLEATED CELLS 100; VACUOLATED NEUTROPHILES FEW
[2016-09-26 00:50] LABS: HEMOGLOBIN 11.4 g/dL (13.6-17.8); MEAN CORPUS HGB CONC 34.5 g/dL (32.0-36.0); MEAN CORPUSCULAR HEMOGLOB 29.2 pg (26.0-34.0); MEAN CORPUSCULAR VOLUME 84.4 fL (80-100); MEAN PLATELET VOLUME 11.2 fL (9.2-13.0); NUCLEATED RED BLOOD CELLS 0.5 /100WBC (0-0); PLATELET COUNT 97 10/3/uL (150-400); RBC DISTRIBUTION WIDTH 17.2 % (12.0-16.0); RED CELL COUNT 3.91 10/6/uL (4.7-6.1); WHITE BLOOD CELLS 14.2 10/3/uL (4.5-10.5)
[2016-09-26 00:58] LABS: MANUAL DIFF YES %
[2016-09-26 00:59] LABS: BUN (BLOOD UREA NITROGEN) 24 MG/DL (6-23); CALCIUM, SERUM 8.2 MG/DL (8.5-10.4); CHLORIDE, SERUM 104 MMOL/L (96-112); CO2 (CARBON DIOXIDE) 22 MMOL/L (24-34); GLUCOSE, SERUM 122 MG/DL (60-99); POTASSIUM, SERUM 4.3 MMOL/L (3.5-5.3); SODIUM, SERUM 137 MMOL/L (135-148)
[2016-09-26 01:01] LABS: CREATININE 2.12 MG/DL (0.70-1.30); GFR AFRICAN AMERICAN 34 ML/MIN (>=60); GFR NON AFRICAN AMERICAN 29 ML/MIN (>=60)
[2016-09-26 01:29] LABS: ANISOCYTOSIS 1+ (5-10/OIF) (0-5/OIF); BAND NEUTROPHILS 7 %; EOSINOPHILS 7 %; EOSINOPHILS ABSOLUTE (CALC) 0.99 10/3/uL (0.0-0.53); IMMATURE GRANS ABSOLUTE (CALC) 0.43 10/3/uL (0.0-0.11); LYMPHOCYTES 6 %; LYMPHOCYTES ABSOLUTE (CALC) 0.85 10/3/uL (0.67-4.30); METAMYELOCYTES 3 %; MONOCYTES 1 %; MONOCYTES ABSOLUTE (CALC) 0.14 10/3/uL (0.21-1.20); NEUTROPHILS ABSOLUTE (CALC) 11.79 10/3/uL (2.02-8.40); PLATELET ESTIMATE DEC (ADEQUATE); SEGMENTED NEUTROPHIL (0) 76 %; TOTAL NUCLEATED CELLS 100
[2016-09-26 03:55] LABS: BE (BASE EXCESS) -8.8 MEQ/L (0 +/- 2.5); CARBOXYHEMOGLOBIN 0.8 % (0-3); HCO3 (ACTUAL BICARBONATE) 18.3 MEQ/L (23-27); HEMOBLOGIN CONTENT 12.2 G/DL (14-18); INSTRUMENT SERIAL # 8083; METHEMOGLOBIN 0.3 % (0-3); MODE CMV; O2 CONTENT 16.5 VOL% (18-24); OPERATOR ID 31061; PCO2 (CO2 TENSION) 44 MMHG (35-45); PO2 (O2 TENSION) 96 MMHG (79-93); SAMPLE Arterial; TIDAL VOLUME 650 ML; pH 7.24 (7.37-7.43)
[2016-09-26 04:25] LABS: INTERNATIONAL NORMAL RATI 1.4 UNITS (-); PROTIME (NOT ORD) 16.9 SEC (12.0-14.5)
[2016-09-26 04:31] LABS: HEMATOCRIT 33.1 % (40.0-51.0); HEMOGLOBIN 11.4 g/dL (13.6-17.8); MEAN CORPUS HGB CONC 34.4 g/dL (32.0-36.0); MEAN CORPUSCULAR HEMOGLOB 29.2 pg (26.0-34.0); MEAN CORPUSCULAR VOLUME 84.9 fL (80-100); MEAN PLATELET VOLUME 10.4 fL (9.2-13.0); NUCLEATED RED BLOOD CELLS 0.3 /100WBC (0-0); PLATELET COUNT 105 10/3/uL (150-400); RBC DISTRIBUTION WIDTH 17.6 % (12.0-16.0)
[2016-09-26 04:34] LABS: MANUAL DIFF YES %
[2016-09-26 04:50] LABS: BUN (BLOOD UREA NITROGEN) 23 MG/DL (6-23); CALCIUM, SERUM 8.4 MG/DL (8.5-10.4); CHLORIDE, SERUM 105 MMOL/L (96-112); CO2 (CARBON DIOXIDE) 20 MMOL/L (24-34); GLUCOSE, SERUM 117 MG/DL (60-99); PHOSPHORUS, SERUM 2.9 MG/DL (2.5-4.5); POTASSIUM, SERUM 4.5 MMOL/L (3.5-5.3); SGOT(AST) 1057 U/L (5-40); SGPT(ALT) 308 U/L (5-65); SODIUM, SERUM 135 MMOL/L (135-148)
[2016-09-26 04:51] LABS: A/G RATIO 0.9 (0.7-1.9); ALBUMIN 2.6 G/DL (3.5-5.0); ALKALINE PHOSPHATASE 839 U/L (45-117); CREATININE 2.17 MG/DL (0.70-1.30); DIRECT BILIRUBIN 19.5 MG/DL (0.0-0.4); GFR AFRICAN AMERICAN 33 ML/MIN (>=60); GFR NON AFRICAN AMERICAN 28 ML/MIN (>=60); GLOBULIN 2.9 G/DL (2.5-4.1); INDIRECT BILIRUBIN(NOT ORDER) 3.7 MG/DL (0.1-0.9); TOTAL BILIRUBIN 23.2 MG/DL (0-1.2); TOTAL PROTEIN 5.5 G/DL (6.0-8.5)
[2016-09-26 06:15] LABS: BAND NEUTROPHILS 5 %; EOSINOPHILS 9 %; EOSINOPHILS ABSOLUTE (CALC) 1.35 10/3/uL (0.0-0.53); IMMATURE GRANS ABSOLUTE (CALC) 0.15 10/3/uL (0.0-0.11); LYMPHOCYTES 6 %; METAMYELOCYTES 1 %; MONOCYTES 2 %; PLATELET ESTIMATE SLT DEC (ADEQUATE); SEGMENTED NEUTROPHIL (0) 77 %; TOTAL NUCLEATED CELLS 100
[2016-09-26 06:16] LABS: ANISOCYTOSIS 1+ (5-10/OIF) (0-5/OIF)
[2016-09-26 12:10] LABS: HEMATOCRIT 31.7 % (40.0-51.0); HEMOGLOBIN 11.1 g/dL (13.6-17.8); MEAN CORPUSCULAR HEMOGLOB 29.5 pg (26.0-34.0); MEAN CORPUSCULAR VOLUME 84.3 fL (80-100); NUCLEATED RED BLOOD CELLS 0.3 /100WBC (0-0); PLATELET COUNT 97 10/3/uL (150-400); RBC DISTRIBUTION WIDTH 17.6 % (12.0-16.0); RED CELL COUNT 3.76 10/6/uL (4.7-6.1); WHITE BLOOD CELLS 13.8 10/3/uL (4.5-10.5)
[2016-09-26 12:11] LABS: MANUAL DIFF YES %
[2016-09-26 12:21] LABS: BUN (BLOOD UREA NITROGEN) 21 MG/DL (6-23); CALCIUM, SERUM 7.9 MG/DL (8.5-10.4); CHLORIDE, SERUM 105 MMOL/L (96-112); CO2 (CARBON DIOXIDE) 21 MMOL/L (24-34); GLUCOSE, SERUM 116 MG/DL (60-99); PHOSPHORUS, SERUM 2.1 MG/DL (2.5-4.5); POTASSIUM, SERUM 3.9 MMOL/L (3.5-5.3); SODIUM, SERUM 138 MMOL/L (135-148)
[2016-09-26 12:23] LABS: CREATININE 1.97 MG/DL (0.70-1.30); GFR AFRICAN AMERICAN 37 ML/MIN (>=60); GFR NON AFRICAN AMERICAN 32 ML/MIN (>=60)
[2016-09-26 12:33] LABS: BAND NEUTROPHILS 14 %; EOSINOPHILS 9 %; EOSINOPHILS ABSOLUTE (CALC) 1.24 10/3/uL (0.0-0.53); IMMATURE GRANS ABSOLUTE (CALC) 0.41 10/3/uL (0.0-0.11); LYMPHOCYTES 4 %; LYMPHOCYTES ABSOLUTE (CALC) 0.55 10/3/uL (0.67-4.30); METAMYELOCYTES 3 %; MONOCYTES 6 %; MONOCYTES ABSOLUTE (CALC) 0.83 10/3/uL (0.21-1.20); NEUTROPHILS ABSOLUTE (CALC) 10.76 10/3/uL (2.02-8.40); PLATELET ESTIMATE DEC (ADEQUATE); RBC MORPHOLOGY NORM (NORMAL); SEGMENTED NEUTROPHIL (0) 64 %; TOTAL NUCLEATED CELLS 100
[2016-09-26 13:40] LABS: PREALBUMIN 4.3 MG/DL (17.0-43.0)
[2016-09-26 19:38] LABS: HEMATOCRIT 33.5 % (40.0-51.0); HEMOGLOBIN 11.4 g/dL (13.6-17.8); MEAN CORPUSCULAR HEMOGLOB 28.6 pg (26.0-34.0); PLATELET COUNT 113 10/3/uL (150-400); RBC DISTRIBUTION WIDTH 17.3 % (12.0-16.0); RED CELL COUNT 3.99 10/6/uL (4.7-6.1); WHITE BLOOD CELLS 14.5 10/3/uL (4.5-10.5)
[2016-09-26 19:40] LABS: BUN (BLOOD UREA NITROGEN) 22 MG/DL (6-23); CHLORIDE, SERUM 104 MMOL/L (96-112); CO2 (CARBON DIOXIDE) 23 MMOL/L (24-34); PHOSPHORUS, SERUM 2.1 MG/DL (2.5-4.5); POTASSIUM, SERUM 3.9 MMOL/L (3.5-5.3); SODIUM, SERUM 135 MMOL/L (135-148)
[2016-09-26 19:41] LABS: CREATININE 1.96 MG/DL (0.70-1.30); GFR AFRICAN AMERICAN 37 ML/MIN (>=60); GFR NON AFRICAN AMERICAN 32 ML/MIN (>=60); GLUCOSE, SERUM 87 MG/DL (60-99)
[2016-09-26 19:43] LABS: MANUAL DIFF YES %
[2016-09-26 20:05] LABS: BAND NEUTROPHILS 16 %; BASOPHILS 1 %; BASOPHILS ABSOLUTE (CALC) 0.15 10/3/uL (0.0-0.16); EOSINOPHILS 9 %; EOSINOPHILS ABSOLUTE (CALC) 1.31 10/3/uL (0.0-0.53); IMMATURE GRANS ABSOLUTE (CALC) 0.87 10/3/uL (0.0-0.11); LYMPHOCYTES 6 %; LYMPHOCYTES ABSOLUTE (CALC) 0.87 10/3/uL (0.67-4.30); METAMYELOCYTES 2 %; MONOCYTES 4 %; MONOCYTES ABSOLUTE (CALC) 0.58 10/3/uL (0.21-1.20); MYELOCYTES 4 %; NEUTROPHILS ABSOLUTE (CALC) 10.73 10/3/uL (2.02-8.40); PLATELET ESTIMATE SLT DEC (ADEQUATE); SEGMENTED NEUTROPHIL (0) 58 %; TOTAL NUCLEATED CELLS 100; TOXIC GRANULATION 1+
[2016-09-26 20:06] LABS: ANISOCYTOSIS 1+ (5-10/OIF) (0-5/OIF); OVALOCYTES 1+ (3-10/OIF) (0-2/OIF)
[2016-09-27 00:04] LABS: HEMATOCRIT 33.7 % (40.0-51.0); HEMOGLOBIN 11.7 g/dL (13.6-17.8); MANUAL DIFF YES %; MEAN CORPUS HGB CONC 34.7 g/dL (32.0-36.0); MEAN CORPUSCULAR HEMOGLOB 29.1 pg (26.0-34.0); MEAN CORPUSCULAR VOLUME 83.8 fL (80-100); MEAN PLATELET VOLUME 10.6 fL (9.2-13.0); NUCLEATED RED BLOOD CELLS 0.3 /100WBC (0-0); PLATELET COUNT 110 10/3/uL (150-400); RBC DISTRIBUTION WIDTH 17.4 % (12.0-16.0); RED CELL COUNT 4.02 10/6/uL (4.7-6.1); WHITE BLOOD CELLS 15.2 10/3/uL (4.5-10.5)
[2016-09-27 00:16] LABS: BUN (BLOOD UREA NITROGEN) 21 MG/DL (6-23); CALCIUM, SERUM 8.2 MG/DL (8.5-10.4); CHLORIDE, SERUM 104 MMOL/L (96-112); CO2 (CARBON DIOXIDE) 23 MMOL/L (24-34); GLUCOSE, SERUM 80 MG/DL (60-99); PHOSPHORUS, SERUM 1.8 MG/DL (2.5-4.5); POTASSIUM, SERUM 3.9 MMOL/L (3.5-5.3); SODIUM, SERUM 137 MMOL/L (135-148)
[2016-09-27 00:17] LABS: ANISOCYTOSIS 1+ (5-10/OIF) (0-5/OIF); BAND NEUTROPHILS 9 %; EOSINOPHILS 4 %; EOSINOPHILS ABSOLUTE (CALC) 0.61 10/3/uL (0.0-0.53); LYMPHOCYTES 6 %; LYMPHOCYTES ABSOLUTE (CALC) 0.91 10/3/uL (0.67-4.30); METAMYELOCYTES 2 %; MONOCYTES 3 %; MONOCYTES ABSOLUTE (CALC) 0.46 10/3/uL (0.21-1.20); NEUTROPHILS ABSOLUTE (CALC) 12.92 10/3/uL (2.02-8.40); PLATELET ESTIMATE SLT DEC (ADEQUATE); SEGMENTED NEUTROPHIL (0) 76 %; TOTAL NUCLEATED CELLS 100
[2016-09-27 00:18] LABS: CREATININE 1.92 MG/DL (0.70-1.30); GFR AFRICAN AMERICAN 38 ML/MIN (>=60); GFR NON AFRICAN AMERICAN 33 ML/MIN (>=60)
[2016-09-27 04:09] LABS: BE (BASE EXCESS) -3.7 MEQ/L (0 +/- 2.5); CARBOXYHEMOGLOBIN 1.8 % (0-3); HCO3 (ACTUAL BICARBONATE) 21.5 MEQ/L (23-27); HEMOBLOGIN CONTENT 12.4 G/DL (14-18); INSTRUMENT SERIAL # 35151; METHEMOGLOBIN 0.4 % (0-3); MODE CMV; O2 CONTENT 16.5 VOL% (18-24); OPERATOR ID 33214; PCO2 (CO2 TENSION) 40 MMHG (35-45); PO2 (O2 TENSION) 87 MMHG (79-93); SAMPLE Arterial; TIDAL VOLUME 650 ML; pH 7.35 (7.37-7.43)
[2016-09-27 04:23] LABS: INTERNATIONAL NORMAL RATI 1.5 UNITS (-)
[2016-09-27 04:48] LABS: PARTIAL THROMBO TIME 116.8 SEC (22.5-37.2)
[2016-09-27 05:01] LABS: HEMATOCRIT 33.8 % (40.0-51.0); HEMOGLOBIN 11.7 g/dL (13.6-17.8); MANUAL DIFF YES %; MEAN CORPUS HGB CONC 34.6 g/dL (32.0-36.0); MEAN CORPUSCULAR HEMOGLOB 28.9 pg (26.0-34.0); MEAN CORPUSCULAR VOLUME 83.5 fL (80-100); MEAN PLATELET VOLUME 10.7 fL (9.2-13.0); NUCLEATED RED BLOOD CELLS 0.3 /100WBC (0-0); PLATELET COUNT 120 10/3/uL (150-400); RBC DISTRIBUTION WIDTH 17.4 % (12.0-16.0); RED CELL COUNT 4.05 10/6/uL (4.7-6.1); WHITE BLOOD CELLS 15.9 10/3/uL (4.5-10.5)
[2016-09-27 05:23] LABS: ALBUMIN 2.5 G/DL (3.5-5.0); BUN (BLOOD UREA NITROGEN) 22 MG/DL (6-23); CALCIUM, SERUM 8.2 MG/DL (8.5-10.4); CHLORIDE, SERUM 99 MMOL/L (96-112); CO2 (CARBON DIOXIDE) 26 MMOL/L (24-34); GLUCOSE, SERUM 72 MG/DL (60-99); POTASSIUM, SERUM 3.8 MMOL/L (3.5-5.3); SGOT(AST) 839 U/L (5-40); SGPT(ALT) 269 U/L (5-65); SODIUM, SERUM 132 MMOL/L (135-148)
[2016-09-27 05:26] LABS: A/G RATIO 0.9 (0.7-1.9); ALKALINE PHOSPHATASE 886 U/L (45-117); CREATININE 1.94 MG/DL (0.70-1.30); GFR AFRICAN AMERICAN 38 ML/MIN (>=60); GFR NON AFRICAN AMERICAN 32 ML/MIN (>=60); GLOBULIN 2.9 G/DL (2.5-4.1); TOTAL PROTEIN 5.4 G/DL (6.0-8.5)
[2016-09-27 05:34] LABS: PROCALCITONIN 10.29 ng/mL (<0.5)
[2016-09-27 07:03] LABS: ANISOCYTOSIS 1+ (5-10/OIF) (0-5/OIF); BAND NEUTROPHILS 7 %; EOSINOPHILS 3 %; EOSINOPHILS ABSOLUTE (CALC) 0.48 10/3/uL (0.0-0.53); IMMATURE GRANS ABSOLUTE (CALC) 0.32 10/3/uL (0.0-0.11); LYMPHOCYTES 6 %; LYMPHOCYTES ABSOLUTE (CALC) 0.95 10/3/uL (0.67-4.30); METAMYELOCYTES 2 %; MONOCYTES 3 %; MONOCYTES ABSOLUTE (CALC) 0.48 10/3/uL (0.21-1.20); NEUTROPHILS ABSOLUTE (CALC) 13.67 10/3/uL (2.02-8.40); PLATELET ESTIMATE SLT DEC (ADEQUATE); SEGMENTED NEUTROPHIL (0) 79 %; TOTAL NUCLEATED CELLS 100
[2016-09-27 11:18] LABS: HEMATOCRIT 33.9 % (40.0-51.0); HEMOGLOBIN 11.9 g/dL (13.6-17.8); MEAN CORPUS HGB CONC 35.1 g/dL (32.0-36.0); MEAN CORPUSCULAR VOLUME 82.7 fL (80-100); MEAN PLATELET VOLUME 10.3 fL (9.2-13.0); NUCLEATED RED BLOOD CELLS 0.5 /100WBC (0-0); PLATELET COUNT 111 10/3/uL (150-400); RBC DISTRIBUTION WIDTH 17.4 % (12.0-16.0); WHITE BLOOD CELLS 15.6 10/3/uL (4.5-10.5)
[2016-09-27 11:21] LABS: MANUAL DIFF YES %
[2016-09-27 11:30] LABS: BUN (BLOOD UREA NITROGEN) 21 MG/DL (6-23); CALCIUM, SERUM 8.3 MG/DL (8.5-10.4); CHLORIDE, SERUM 102 MMOL/L (96-112); CO2 (CARBON DIOXIDE) 25 MMOL/L (24-34); GLUCOSE, SERUM 84 MG/DL (60-99); PHOSPHORUS, SERUM 2.3 MG/DL (2.5-4.5); SODIUM, SERUM 135 MMOL/L (135-148)
[2016-09-27 11:31] LABS: CREATININE 1.89 MG/DL (0.70-1.30); GFR AFRICAN AMERICAN 39 ML/MIN (>=60); GFR NON AFRICAN AMERICAN 33 ML/MIN (>=60)
[2016-09-27 11:51] LABS: ANISOCYTOSIS 1+ (5-10/OIF) (0-5/OIF); BAND NEUTROPHILS 4 %; EOSINOPHILS 6 %; EOSINOPHILS ABSOLUTE (CALC) 0.94 10/3/uL (0.0-0.53); IMMATURE GRANS ABSOLUTE (CALC) 0.16 10/3/uL (0.0-0.11); LYMPHOCYTES 1 %; LYMPHOCYTES ABSOLUTE (CALC) 0.16 10/3/uL (0.67-4.30); METAMYELOCYTES 1 %; MONOCYTES 7 %; MONOCYTES ABSOLUTE (CALC) 1.09 10/3/uL (0.21-1.20); NEUTROPHILS ABSOLUTE (CALC) 13.26 10/3/uL (2.02-8.40); PLATELET ESTIMATE ADQ (ADEQUATE); SEGMENTED NEUTROPHIL (0) 81 %; TOTAL NUCLEATED CELLS 100
[2016-09-27 17:45] LABS: BUN (BLOOD UREA NITROGEN) 23 MG/DL (6-23); CALCIUM, SERUM 8.2 MG/DL (8.5-10.4); CHLORIDE, SERUM 101 MMOL/L (96-112); CO2 (CARBON DIOXIDE) 25 MMOL/L (24-34); POTASSIUM, SERUM 4.2 MMOL/L (3.5-5.3); SODIUM, SERUM 134 MMOL/L (135-148)
[2016-09-27 17:47] LABS: CREATININE 1.99 MG/DL (0.70-1.30); GFR AFRICAN AMERICAN 36 ML/MIN (>=60); GFR NON AFRICAN AMERICAN 31 ML/MIN (>=60); GLUCOSE, SERUM 109 MG/DL (60-99)
[2016-09-27 17:48] LABS: HEMATOCRIT 33.8 % (40.0-51.0); HEMOGLOBIN 11.9 g/dL (13.6-17.8); MEAN CORPUS HGB CONC 35.2 g/dL (32.0-36.0); MEAN CORPUSCULAR HEMOGLOB 29.2 pg (26.0-34.0); MEAN CORPUSCULAR VOLUME 82.8 fL (80-100); MEAN PLATELET VOLUME 10.8 fL (9.2-13.0); NUCLEATED RED BLOOD CELLS 0.7 /100WBC (0-0); PLATELET COUNT 113 10/3/uL (150-400); RBC DISTRIBUTION WIDTH 17.2 % (12.0-16.0); RED CELL COUNT 4.08 10/6/uL (4.7-6.1); WHITE BLOOD CELLS 14.4 10/3/uL (4.5-10.5)
[2016-09-27 17:49] LABS: MANUAL DIFF YES %
[2016-09-27 18:08] LABS: ANISOCYTOSIS 1+ (5-10/OIF) (0-5/OIF); BAND NEUTROPHILS 7 %; EOSINOPHILS 2 %; EOSINOPHILS ABSOLUTE (CALC) 0.29 10/3/uL (0.0-0.53); IMMATURE GRANS ABSOLUTE (CALC) 0.29 10/3/uL (0.0-0.11); LYMPHOCYTES 9 %; METAMYELOCYTES 2 %; MONOCYTES 4 %; MONOCYTES ABSOLUTE (CALC) 0.58 10/3/uL (0.21-1.20); NEUTROPHILS ABSOLUTE (CALC) 11.95 10/3/uL (2.02-8.40); PLATELET ESTIMATE SLT DEC (ADEQUATE); SEGMENTED NEUTROPHIL (0) 76 %; TOTAL NUCLEATED CELLS 100
[2016-09-27 18:09] LABS: MACROCYTES 1+ (5-10/OIF) (0-5/OIF); MICROCYTES 1+ (5-10/OIF) (0-5/OIF)
[2016-09-27 18:10] LABS: POLYCHROMASIA 1+ (2-5/OIF) (0-1/OIF); TEARDROP SHAPED RBCS OCC (0-2/OIF)
[2016-09-28 00:25] LABS: HEMATOCRIT 35.5 % (40.0-51.0); HEMOGLOBIN 12.2 g/dL (13.6-17.8); MANUAL DIFF YES %; MEAN CORPUS HGB CONC 34.4 g/dL (32.0-36.0); MEAN CORPUSCULAR HEMOGLOB 28.6 pg (26.0-34.0); MEAN CORPUSCULAR VOLUME 83.1 fL (80-100); MEAN PLATELET VOLUME 10.7 fL (9.2-13.0); NUCLEATED RED BLOOD CELLS 0.7 /100WBC (0-0); PLATELET COUNT 110 10/3/uL (150-400); RBC DISTRIBUTION WIDTH 17.3 % (12.0-16.0); RED CELL COUNT 4.27 10/6/uL (4.7-6.1); WHITE BLOOD CELLS 15.6 10/3/uL (4.5-10.5)
[2016-09-28 00:33] LABS: BUN (BLOOD UREA NITROGEN) 25 MG/DL (6-23); CALCIUM, SERUM 8.3 MG/DL (8.5-10.4); CHLORIDE, SERUM 102 MMOL/L (96-112); CO2 (CARBON DIOXIDE) 24 MMOL/L (24-34); PHOSPHORUS, SERUM 2.6 MG/DL (2.5-4.5); POTASSIUM, SERUM 4.5 MMOL/L (3.5-5.3); SODIUM, SERUM 137 MMOL/L (135-148)
[2016-09-28 00:36] LABS: CREATININE 1.95 MG/DL (0.70-1.30); GFR AFRICAN AMERICAN 37 ML/MIN (>=60); GFR NON AFRICAN AMERICAN 32 ML/MIN (>=60); GLUCOSE, SERUM 180 MG/DL (60-99)
[2016-09-28 00:40] LABS: BAND NEUTROPHILS 6 %; EOSINOPHILS 5 %; EOSINOPHILS ABSOLUTE (CALC) 0.78 10/3/uL (0.0-0.53); IMMATURE GRANS ABSOLUTE (CALC) 0.47 10/3/uL (0.0-0.11); LYMPHOCYTES 14 %; LYMPHOCYTES ABSOLUTE (CALC) 2.18 10/3/uL (0.67-4.30); METAMYELOCYTES 3 %; MONOCYTES 6 %; MONOCYTES ABSOLUTE (CALC) 0.94 10/3/uL (0.21-1.20); NEUTROPHILS ABSOLUTE (CALC) 11.23 10/3/uL (2.02-8.40); SEGMENTED NEUTROPHIL (0) 66 %; TOTAL NUCLEATED CELLS 100
[2016-09-28 00:41] LABS: ANISOCYTOSIS 1+ (5-10/OIF) (0-5/OIF); PLATELET ESTIMATE SLT DEC (ADEQUATE); VACUOLATED NEUTROPHILES MOD
[2016-09-28 00:42] LABS: POLYCHROMASIA 1+ (2-5/OIF) (0-1/OIF)
[2016-09-28 05:47] LABS: BE (BASE EXCESS) -1.2 MEQ/L (0 +/- 2.5); CARBOXYHEMOGLOBIN 1.6 % (0-3); HCO3 (ACTUAL BICARBONATE) 24.4 MEQ/L (23-27); INSTRUMENT SERIAL # 35151; METHEMOGLOBIN 0.6 % (0-3); MODE CMV; O2 CONTENT 17.1 VOL% (18-24); OPERATOR ID 17370; PCO2 (CO2 TENSION) 44 MMHG (35-45); PO2 (O2 TENSION) 79 MMHG (79-93); SAMPLE Arterial; TIDAL VOLUME 650 ML; pH 7.36 (7.37-7.43)
[2016-09-28 06:39] LABS: INTERNATIONAL NORMAL RATI 1.4 UNITS (-); PROTIME (NOT ORD) 17.1 SEC (12.0-14.5)
[2016-09-28 06:46] LABS: HEMATOCRIT 35.6 % (40.0-51.0); HEMOGLOBIN 12.3 g/dL (13.6-17.8); MEAN CORPUS HGB CONC 34.6 g/dL (32.0-36.0); MEAN CORPUSCULAR HEMOGLOB 28.9 pg (26.0-34.0); MEAN CORPUSCULAR VOLUME 83.8 fL (80-100); MEAN PLATELET VOLUME 10.7 fL (9.2-13.0); NUCLEATED RED BLOOD CELLS 0.8 /100WBC (0-0); PLATELET COUNT 121 10/3/uL (150-400); RBC DISTRIBUTION WIDTH 17.3 % (12.0-16.0); RED CELL COUNT 4.25 10/6/uL (4.7-6.1); WHITE BLOOD CELLS 15.1 10/3/uL (4.5-10.5)
[2016-09-28 06:47] LABS: MANUAL DIFF YES %
[2016-09-28 07:04] LABS: BUN (BLOOD UREA NITROGEN) 27 MG/DL (6-23); CALCIUM, SERUM 8.5 MG/DL (8.5-10.4); CHLORIDE, SERUM 101 MMOL/L (96-112); CO2 (CARBON DIOXIDE) 24 MMOL/L (24-34); GLUCOSE, SERUM 151 MG/DL (60-99); PHOSPHORUS, SERUM 2.8 MG/DL (2.5-4.5); POTASSIUM, SERUM 4.2 MMOL/L (3.5-5.3); SGPT(ALT) 270 U/L (5-65); SODIUM, SERUM 137 MMOL/L (135-148)
[2016-09-28 07:08] LABS: ANISOCYTOSIS 1+ (5-10/OIF) (0-5/OIF); BAND NEUTROPHILS 4 %; EOSINOPHILS 3 %; EOSINOPHILS ABSOLUTE (CALC) 0.45 10/3/uL (0.0-0.53); LYMPHOCYTES 5 %; LYMPHOCYTES ABSOLUTE (CALC) 0.76 10/3/uL (0.67-4.30); METAMYELOCYTES 2 %; MONOCYTES 9 %; MONOCYTES ABSOLUTE (CALC) 1.36 10/3/uL (0.21-1.20); MYELOCYTES 2 %; NEUTROPHILS ABSOLUTE (CALC) 11.93 10/3/uL (2.02-8.40); PLATELET ESTIMATE SLT DEC (ADEQUATE); SEGMENTED NEUTROPHIL (0) 75 %; TOTAL NUCLEATED CELLS 100
[2016-09-28 07:08] LABS: ALKALINE PHOSPHATASE 1107 U/L (45-117); TOTAL BILIRUBIN 25.7 MG/DL (0-1.2)
[2016-09-28 07:09] LABS: A/G RATIO 0.6 (0.7-1.9); CREATININE 1.91 MG/DL (0.70-1.30); GFR AFRICAN AMERICAN 38 ML/MIN (>=60); GFR NON AFRICAN AMERICAN 33 ML/MIN (>=60); GLOBULIN 3.5 G/DL (2.5-4.1); TOTAL PROTEIN 5.5 G/DL (6.0-8.5)
[2016-09-28 07:10] LABS: SGOT(AST) 901 U/L (5-40)
[2016-09-28 11:51] LABS: HEMATOCRIT 34.5 % (40.0-51.0); MEAN CORPUS HGB CONC 34.8 g/dL (32.0-36.0); MEAN CORPUSCULAR HEMOGLOB 28.8 pg (26.0-34.0); MEAN CORPUSCULAR VOLUME 82.9 fL (80-100); MEAN PLATELET VOLUME 9.9 fL (9.2-13.0); NUCLEATED RED BLOOD CELLS 0.9 /100WBC (0-0); PLATELET COUNT 103 10/3/uL (150-400); RBC DISTRIBUTION WIDTH 17.3 % (12.0-16.0); RED CELL COUNT 4.16 10/6/uL (4.7-6.1)
[2016-09-28 11:55] LABS: MANUAL DIFF YES %
[2016-09-28 11:56] LABS: BUN (BLOOD UREA NITROGEN) 27 MG/DL (6-23); CALCIUM, SERUM 8.4 MG/DL (8.5-10.4); CHLORIDE, SERUM 101 MMOL/L (96-112); CO2 (CARBON DIOXIDE) 24 MMOL/L (24-34); PHOSPHORUS, SERUM 2.2 MG/DL (2.5-4.5); POTASSIUM, SERUM 4.6 MMOL/L (3.5-5.3); SODIUM, SERUM 136 MMOL/L (135-148)
[2016-09-28 11:59] LABS: GLUCOSE, SERUM 187 MG/DL (60-99)
[2016-09-28 12:00] LABS: CREATININE 1.91 MG/DL (0.70-1.30); GFR AFRICAN AMERICAN 38 ML/MIN (>=60); GFR NON AFRICAN AMERICAN 33 ML/MIN (>=60)
[2016-09-28 12:30] LABS: ANISOCYTOSIS 1+ (5-10/OIF) (0-5/OIF); BAND NEUTROPHILS 14 %; EOSINOPHILS 1 %; EOSINOPHILS ABSOLUTE (CALC) 0.13 10/3/uL (0.0-0.53); IMMATURE GRANS ABSOLUTE (CALC) 0.52 10/3/uL (0.0-0.11); LYMPHOCYTES 5 %; LYMPHOCYTES ABSOLUTE (CALC) 0.65 10/3/uL (0.67-4.30); METAMYELOCYTES 3 %; MONOCYTES 11 %; MONOCYTES ABSOLUTE (CALC) 1.43 10/3/uL (0.21-1.20); MYELOCYTES 1 %; NEUTROPHILS ABSOLUTE (CALC) 10.27 10/3/uL (2.02-8.40); PLATELET ESTIMATE SLT DEC (ADEQUATE); POLYCHROMASIA 1+ (2-5/OIF) (0-1/OIF); SEGMENTED NEUTROPHIL (0) 65 %; TOTAL NUCLEATED CELLS 100
[2016-09-28 18:22] LABS: HEMATOCRIT 33.9 % (40.0-51.0); HEMOGLOBIN 11.8 g/dL (13.6-17.8); MEAN CORPUS HGB CONC 34.8 g/dL (32.0-36.0); MEAN CORPUSCULAR HEMOGLOB 29.1 pg (26.0-34.0); MEAN CORPUSCULAR VOLUME 83.7 fL (80-100); NUCLEATED RED BLOOD CELLS 0.8 /100WBC (0-0); PLATELET COUNT 123 10/3/uL (150-400); RBC DISTRIBUTION WIDTH 17.2 % (12.0-16.0); RED CELL COUNT 4.05 10/6/uL (4.7-6.1); WHITE BLOOD CELLS 12.7 10/3/uL (4.5-10.5)
[2016-09-28 18:23] LABS: MANUAL DIFF YES %
[2016-09-28 18:33] LABS: CALCIUM, SERUM 8.1 MG/DL (8.5-10.4); CHLORIDE, SERUM 102 MMOL/L (96-112); CO2 (CARBON DIOXIDE) 25 MMOL/L (24-34); GLUCOSE, SERUM 204 MG/DL (60-99); POTASSIUM, SERUM 4.4 MMOL/L (3.5-5.3); SODIUM, SERUM 135 MMOL/L (135-148)
[2016-09-28 18:34] LABS: BUN (BLOOD UREA NITROGEN) 31 MG/DL (6-23); CREATININE 2.01 MG/DL (0.70-1.30); GFR AFRICAN AMERICAN 36 ML/MIN (>=60); GFR NON AFRICAN AMERICAN 31 ML/MIN (>=60)
[2016-09-28 19:12] LABS: BAND NEUTROPHILS 8 %; EOSINOPHILS 5 %; EOSINOPHILS ABSOLUTE (CALC) 0.64 10/3/uL (0.0-0.53); IMMATURE GRANS ABSOLUTE (CALC) 0.25 10/3/uL (0.0-0.11); LYMPHOCYTES 10 %; LYMPHOCYTES ABSOLUTE (CALC) 1.27 10/3/uL (0.67-4.30); METAMYELOCYTES 1 %; MONOCYTES 5 %; MONOCYTES ABSOLUTE (CALC) 0.64 10/3/uL (0.21-1.20); MYELOCYTES 1 %; NEUTROPHILS ABSOLUTE (CALC) 9.91 10/3/uL (2.02-8.40); SEGMENTED NEUTROPHIL (0) 70 %; TOTAL NUCLEATED CELLS 100
[2016-09-28 19:13] LABS: ANISOCYTOSIS 1+ (5-10/OIF) (0-5/OIF)
[2016-09-28 19:14] LABS: VACUOLATED NEUTROPHILES FEW
[2016-09-29 01:01] LABS: HEMATOCRIT 34.8 % (40.0-51.0); HEMOGLOBIN 11.9 g/dL (13.6-17.8); MEAN CORPUS HGB CONC 34.2 g/dL (32.0-36.0); MEAN CORPUSCULAR VOLUME 84.7 fL (80-100); MEAN PLATELET VOLUME 11.2 fL (9.2-13.0); NUCLEATED RED BLOOD CELLS 1.2 /100WBC (0-0); PLATELET COUNT 130 10/3/uL (150-400); RBC DISTRIBUTION WIDTH 17.5 % (12.0-16.0); RED CELL COUNT 4.11 10/6/uL (4.7-6.1); WHITE BLOOD CELLS 12.1 10/3/uL (4.5-10.5)
[2016-09-29 01:05] LABS: MANUAL DIFF YES %
[2016-09-29 01:12] LABS: ALBUMIN 1.7 G/DL (3.5-5.0); BUN (BLOOD UREA NITROGEN) 31 MG/DL (6-23); CALCIUM, SERUM 8.4 MG/DL (8.5-10.4); CHLORIDE, SERUM 102 MMOL/L (96-112); CO2 (CARBON DIOXIDE) 25 MMOL/L (24-34); POTASSIUM, SERUM 4.7 MMOL/L (3.5-5.3); SODIUM, SERUM 137 MMOL/L (135-148)
[2016-09-29 01:15] LABS: CREATININE 2.06 MG/DL (0.70-1.30); GFR AFRICAN AMERICAN 35 ML/MIN (>=60); GFR NON AFRICAN AMERICAN 30 ML/MIN (>=60); GLUCOSE, SERUM 147 MG/DL (60-99); PHOSPHORUS, SERUM 2.9 MG/DL (2.5-4.5)
[2016-09-29 01:19] LABS: ANISOCYTOSIS 1+ (5-10/OIF) (0-5/OIF); BAND NEUTROPHILS 9 %; EOSINOPHILS 2 %; EOSINOPHILS ABSOLUTE (CALC) 0.24 10/3/uL (0.0-0.53); IMMATURE GRANS ABSOLUTE (CALC) 0.73 10/3/uL (0.0-0.11); LYMPHOCYTES 12 %; LYMPHOCYTES ABSOLUTE (CALC) 1.45 10/3/uL (0.67-4.30); METAMYELOCYTES 5 %; MONOCYTES 2 %; MONOCYTES ABSOLUTE (CALC) 0.24 10/3/uL (0.21-1.20); MYELOCYTES 1 %; NEUTROPHILS ABSOLUTE (CALC) 9.44 10/3/uL (2.02-8.40); PLATELET ESTIMATE SLT DEC (ADEQUATE); SEGMENTED NEUTROPHIL (0) 69 %; TOTAL NUCLEATED CELLS 100; VACUOLATED NEUTROPHILES OCC
[2016-09-29 01:20] LABS: HYPOCHROMIA 1+ (3-10/OIF) (0-2/OIF)
[2016-09-29 03:34] LABS: CARBOXYHEMOGLOBIN 1.6 % (0-3); HCO3 (ACTUAL BICARBONATE) 21.5 MEQ/L (23-27); HEMOBLOGIN CONTENT 12.7 G/DL (14-18); INSTRUMENT SERIAL # 35151; METHEMOGLOBIN 0.4 % (0-3); MODE CMV; O2 CONTENT 16.7 VOL% (18-24); PCO2 (CO2 TENSION) 37 MMHG (35-45); PO2 (O2 TENSION) 76 MMHG (79-93); SAMPLE Arterial; TIDAL VOLUME 650 ML; pH 7.39 (7.37-7.43)
[2016-09-29 05:50] LABS: HEMATOCRIT 33.6 % (40.0-51.0); HEMOGLOBIN 11.4 g/dL (13.6-17.8); MEAN CORPUS HGB CONC 33.9 g/dL (32.0-36.0); MEAN CORPUSCULAR HEMOGLOB 28.7 pg (26.0-34.0); MEAN CORPUSCULAR VOLUME 84.6 fL (80-100); MEAN PLATELET VOLUME 10.6 fL (9.2-13.0); PLATELET COUNT 113 10/3/uL (150-400); RBC DISTRIBUTION WIDTH 17.4 % (12.0-16.0); RED CELL COUNT 3.97 10/6/uL (4.7-6.1); WHITE BLOOD CELLS 12.8 10/3/uL (4.5-10.5)
[2016-09-29 05:52] LABS: MANUAL DIFF YES %
[2016-09-29 05:55] LABS: ALBUMIN 1.7 G/DL (3.5-5.0); CALCIUM, SERUM 8.2 MG/DL (8.5-10.4); CHLORIDE, SERUM 101 MMOL/L (96-112); CO2 (CARBON DIOXIDE) 25 MMOL/L (24-34); PHOSPHORUS, SERUM 2.9 MG/DL (2.5-4.5); POTASSIUM, SERUM 4.9 MMOL/L (3.5-5.3); SGOT(AST) 1178 U/L (5-40); SGPT(ALT) 327 U/L (5-65)
[2016-09-29 05:57] LABS: BUN (BLOOD UREA NITROGEN) 36 MG/DL (6-23)
[2016-09-29 05:58] LABS: A/G RATIO 0.5 (0.7-1.9); CREATININE 2.06 MG/DL (0.70-1.30); GFR AFRICAN AMERICAN 35 ML/MIN (>=60); GFR NON AFRICAN AMERICAN 30 ML/MIN (>=60); GLOBULIN 3.6 G/DL (2.5-4.1); GLUCOSE, SERUM 228 MG/DL (60-99); TOTAL PROTEIN 5.3 G/DL (6.0-8.5)
[2016-09-29 05:59] LABS: SODIUM, SERUM 134 MMOL/L (135-148); TOTAL BILIRUBIN 23.9 MG/DL (0-1.2)
[2016-09-29 06:22] LABS: ALKALINE PHOSPHATASE 1164 U/L (45-117)
[2016-09-29 06:35] LABS: PROCALCITONIN 13.67 ng/mL (<0.5)
[2016-09-29 06:43] LABS: ANISOCYTOSIS 1+ (5-10/OIF) (0-5/OIF); BAND NEUTROPHILS 7 %; EOSINOPHILS 4 %; EOSINOPHILS ABSOLUTE (CALC) 0.51 10/3/uL (0.0-0.53); IMMATURE GRANS ABSOLUTE (CALC) 0.51 10/3/uL (0.0-0.11); LYMPHOCYTES 13 %; LYMPHOCYTES ABSOLUTE (CALC) 1.66 10/3/uL (0.67-4.30); METAMYELOCYTES 3 %; MONOCYTES 2 %; MONOCYTES ABSOLUTE (CALC) 0.26 10/3/uL (0.21-1.20); MYELOCYTES 1 %; NEUTROPHILS ABSOLUTE (CALC) 9.86 10/3/uL (2.02-8.40); PLATELET ESTIMATE SLT DEC (ADEQUATE); SEGMENTED NEUTROPHIL (0) 70 %; TOTAL NUCLEATED CELLS 100
[2016-09-29 06:44] LABS: POLYCHROMASIA 1+ (2-5/OIF) (0-1/OIF)
[2016-09-29 12:06] LABS: HEMATOCRIT 34.3 % (40.0-51.0); HEMOGLOBIN 11.7 g/dL (13.6-17.8); MEAN CORPUS HGB CONC 34.1 g/dL (32.0-36.0); MEAN CORPUSCULAR HEMOGLOB 28.7 pg (26.0-34.0); MEAN CORPUSCULAR VOLUME 84.1 fL (80-100); MEAN PLATELET VOLUME 10.6 fL (9.2-13.0); PLATELET COUNT 125 10/3/uL (150-400); RBC DISTRIBUTION WIDTH 17.5 % (12.0-16.0); RED CELL COUNT 4.08 10/6/uL (4.7-6.1); WHITE BLOOD CELLS 12.9 10/3/uL (4.5-10.5)
[2016-09-29 12:08] LABS: MANUAL DIFF YES %
[2016-09-29 12:10] LABS: BUN (BLOOD UREA NITROGEN) 36 MG/DL (6-23); CALCIUM, SERUM 8.5 MG/DL (8.5-10.4); CHLORIDE, SERUM 101 MMOL/L (96-112); CO2 (CARBON DIOXIDE) 24 MMOL/L (24-34); GLUCOSE, SERUM 188 MG/DL (60-99); POTASSIUM, SERUM 4.9 MMOL/L (3.5-5.3); SODIUM, SERUM 136 MMOL/L (135-148)
[2016-09-29 12:12] LABS: CREATININE 2.12 MG/DL (0.70-1.30); GFR AFRICAN AMERICAN 34 ML/MIN (>=60); GFR NON AFRICAN AMERICAN 29 ML/MIN (>=60)
[2016-09-29 12:47] LABS: ANISOCYTOSIS 1+ (5-10/OIF) (0-5/OIF); BAND NEUTROPHILS 10 %; IMMATURE GRANS ABSOLUTE (CALC) 1.03 10/3/uL (0.0-0.11); LYMPHOCYTES 11 %; LYMPHOCYTES ABSOLUTE (CALC) 1.42 10/3/uL (0.67-4.30); METAMYELOCYTES 6 %; MONOCYTES 5 %; MONOCYTES ABSOLUTE (CALC) 0.65 10/3/uL (0.21-1.20); MYELOCYTES 2 %; PLATELET ESTIMATE SLT DEC (ADEQUATE); SEGMENTED NEUTROPHIL (0) 66 %; TOTAL NUCLEATED CELLS 100
[2016-09-29 12:48] LABS: POLYCHROMASIA 1+ (2-5/OIF) (0-1/OIF)
[2016-09-29 18:48] LABS: BASOPHILS 0.7 %; EOSINOPHILS 2.7 %; HEMATOCRIT 33.5 % (40.0-51.0); HEMOGLOBIN 11.5 g/dL (13.6-17.8); IMMATURE GRANULOCYTES 11.5 %; IMMATURE GRANULOCYTES ABSOLUTE 1.68 10/3/uL (0.0-0.11); LYMPHOCYTES 11.3 %; LYMPHOCYTES ABSOLUTE 1.65 10/3/uL (0.67-4.30); MANUAL DIFF NO %; MEAN CORPUS HGB CONC 34.3 g/dL (32.0-36.0); MEAN CORPUSCULAR HEMOGLOB 28.8 pg (26.0-34.0); MEAN PLATELET VOLUME 10.9 fL (9.2-13.0); MONOCYTES 5.4 %; MONOCYTES ABSOLUTE 0.79 10/3/uL (0.21-1.20); NEUTROPHILS 68.4 %; NEUTROPHILS ABSOLUTE 9.93 10/3/uL (2.02-8.40); NUCLEATED RED BLOOD CELLS 1.2 /100WBC (0-0); PLATELET COUNT 121 10/3/uL (150-400); RBC DISTRIBUTION WIDTH 17.7 % (12.0-16.0); RED CELL COUNT 3.99 10/6/uL (4.7-6.1); WHITE BLOOD CELLS 14.6 10/3/uL (4.5-10.5)
[2016-09-29 19:03] LABS: CALCIUM, SERUM 8.6 MG/DL (8.5-10.4); CHLORIDE, SERUM 100 MMOL/L (96-112); CO2 (CARBON DIOXIDE) 24 MMOL/L (24-34); GLUCOSE, SERUM 219 MG/DL (60-99); POTASSIUM, SERUM 5.2 MMOL/L (3.5-5.3); SODIUM, SERUM 134 MMOL/L (135-148)
[2016-09-29 19:06] LABS: BUN (BLOOD UREA NITROGEN) 43 MG/DL (6-23); PHOSPHORUS, SERUM 3.8 MG/DL (2.5-4.5)
[2016-09-29 19:07] LABS: CREATININE 2.46 MG/DL (0.70-1.30); GFR AFRICAN AMERICAN 28 ML/MIN (>=60); GFR NON AFRICAN AMERICAN 24 ML/MIN (>=60)
[2016-09-29 19:11] LABS: BAND NEUTROPHILS 6 %; EOSINOPHILS 2 %; EOSINOPHILS ABSOLUTE (CALC) 0.29 10/3/uL (0.0-0.53); IMMATURE GRANS ABSOLUTE (CALC) 0.58 10/3/uL (0.0-0.11); LYMPHOCYTES 19 %; LYMPHOCYTES ABSOLUTE (CALC) 2.77 10/3/uL (0.67-4.30); METAMYELOCYTES 4 %; MONOCYTES 3 %; MONOCYTES ABSOLUTE (CALC) 0.44 10/3/uL (0.21-1.20); NEUTROPHILS ABSOLUTE (CALC) 10.51 10/3/uL (2.02-8.40); SEGMENTED NEUTROPHIL (0) 66 %; TOTAL NUCLEATED CELLS 100
[2016-09-29 19:12] LABS: ANISOCYTOSIS 1+ (5-10/OIF) (0-5/OIF); MACROCYTES 1+ (5-10/OIF) (0-5/OIF); MICROCYTES 1+ (5-10/OIF) (0-5/OIF); PLATELET ESTIMATE SLT DEC (ADEQUATE); POLYCHROMASIA 1+ (2-5/OIF) (0-1/OIF); TARGET CELLS OCC (1-2/OIF) (0-1/OIF)
[2016-09-30 00:36] LABS: HEMATOCRIT 33.9 % (40.0-51.0); HEMOGLOBIN 11.9 g/dL (13.6-17.8); MEAN CORPUS HGB CONC 35.1 g/dL (32.0-36.0); MEAN CORPUSCULAR HEMOGLOB 29.8 pg (26.0-34.0); MEAN CORPUSCULAR VOLUME 84.8 fL (80-100); NUCLEATED RED BLOOD CELLS 1.3 /100WBC (0-0); PLATELET COUNT 118 10/3/uL (150-400); RBC DISTRIBUTION WIDTH 17.9 % (12.0-16.0); WHITE BLOOD CELLS 15.1 10/3/uL (4.5-10.5)
[2016-09-30 00:40] LABS: MANUAL DIFF YES %
[2016-09-30 00:41] LABS: PARTIAL THROMBO TIME 136.2 SEC (22.5-37.2)
[2016-09-30 00:42] LABS: BUN (BLOOD UREA NITROGEN) 42 MG/DL (6-23); CALCIUM, SERUM 8.8 MG/DL (8.5-10.4); CHLORIDE, SERUM 100 MMOL/L (96-112); CO2 (CARBON DIOXIDE) 21 MMOL/L (24-34); GLUCOSE, SERUM 181 MG/DL (60-99); POTASSIUM, SERUM 5.1 MMOL/L (3.5-5.3); SODIUM, SERUM 135 MMOL/L (135-148)
[2016-09-30 00:43] LABS: CREATININE 2.34 MG/DL (0.70-1.30); GFR AFRICAN AMERICAN 30 ML/MIN (>=60); GFR NON AFRICAN AMERICAN 26 ML/MIN (>=60)
[2016-09-30 01:02] LABS: ANISOCYTOSIS 1+ (5-10/OIF) (0-5/OIF); BAND NEUTROPHILS 2 %; EOSINOPHILS 4 %; IMMATURE GRANS ABSOLUTE (CALC) 0.76 10/3/uL (0.0-0.11); LYMPHOCYTES 11 %; LYMPHOCYTES ABSOLUTE (CALC) 1.66 10/3/uL (0.67-4.30); METAMYELOCYTES 4 %; MONOCYTES 7 %; MONOCYTES ABSOLUTE (CALC) 1.06 10/3/uL (0.21-1.20); MYELOCYTES 1 %; NEUTROPHILS ABSOLUTE (CALC) 11.02 10/3/uL (2.02-8.40); PLATELET ESTIMATE SLT DEC (ADEQUATE); SEGMENTED NEUTROPHIL (0) 71 %; TOTAL NUCLEATED CELLS 100
[2016-09-30 03:57] LABS: BE (BASE EXCESS) -5.8 MEQ/L (0 +/- 2.5); CARBOXYHEMOGLOBIN 1.9 % (0-3); HCO3 (ACTUAL BICARBONATE) 18.6 MEQ/L (23-27); INSTRUMENT SERIAL # 35151; METHEMOGLOBIN 0.2 % (0-3); PCO2 (CO2 TENSION) 33 MMHG (35-45); PO2 (O2 TENSION) 77 MMHG (79-93); pH 7.37 (7.37-7.43)
[2016-09-30 03:58] LABS: HEMOBLOGIN CONTENT 13.1 G/DL (14-18); MODE CMV; O2 CONTENT 17.2 VOL% (18-24); OPERATOR ID 23712; SAMPLE Arterial; TIDAL VOLUME 650 ML
[2016-09-30 05:12] LABS: HEMATOCRIT 35.3 % (40.0-51.0); HEMOGLOBIN 12.2 g/dL (13.6-17.8); MANUAL DIFF YES %; MEAN CORPUS HGB CONC 34.6 g/dL (32.0-36.0); MEAN CORPUSCULAR HEMOGLOB 29.5 pg (26.0-34.0); MEAN CORPUSCULAR VOLUME 85.3 fL (80-100); MEAN PLATELET VOLUME 11.1 fL (9.2-13.0); NUCLEATED RED BLOOD CELLS 2.1 /100WBC (0-0); PLATELET COUNT 117 10/3/uL (150-400); RBC DISTRIBUTION WIDTH 17.9 % (12.0-16.0); RED CELL COUNT 4.14 10/6/uL (4.7-6.1); WHITE BLOOD CELLS 18.5 10/3/uL (4.5-10.5)
[2016-09-30 05:24] LABS: BAND NEUTROPHILS 8 %; EOSINOPHILS 2 %; EOSINOPHILS ABSOLUTE (CALC) 0.37 10/3/uL (0.0-0.53); IMMATURE GRANS ABSOLUTE (CALC) 1.11 10/3/uL (0.0-0.11); LYMPHOCYTES 16 %; LYMPHOCYTES ABSOLUTE (CALC) 2.96 10/3/uL (0.67-4.30); METAMYELOCYTES 6 %; MONOCYTES 5 %; MONOCYTES ABSOLUTE (CALC) 0.93 10/3/uL (0.21-1.20); NEUTROPHILS ABSOLUTE (CALC) 13.14 10/3/uL (2.02-8.40); PLATELET ESTIMATE SLT DEC (ADEQUATE); SEGMENTED NEUTROPHIL (0) 63 %; TOTAL NUCLEATED CELLS 100
[2016-09-30 05:25] LABS: ANISOCYTOSIS 1+ (5-10/OIF) (0-5/OIF); POLYCHROMASIA 1+ (2-5/OIF) (0-1/OIF)
[2016-09-30 05:46] LABS: ALBUMIN 1.8 G/DL (3.5-5.0); CALCIUM, SERUM 8.9 MG/DL (8.5-10.4); CHLORIDE, SERUM 99 MMOL/L (96-112); CO2 (CARBON DIOXIDE) 20 MMOL/L (24-34); PHOSPHORUS, SERUM 4.6 MG/DL (2.5-4.5); POTASSIUM, SERUM 5.4 MMOL/L (3.5-5.3); SGPT(ALT) 510 U/L (5-65); SODIUM, SERUM 133 MMOL/L (135-148)
[2016-09-30 05:51] LABS: BUN (BLOOD UREA NITROGEN) 37 MG/DL (6-23); CREATININE 2.34 MG/DL (0.70-1.30); GFR AFRICAN AMERICAN 30 ML/MIN (>=60); GFR NON AFRICAN AMERICAN 26 ML/MIN (>=60); GLUCOSE, SERUM 129 MG/DL (60-99)
[2016-09-30 05:52] LABS: ALKALINE PHOSPHATASE 1453 U/L (45-117); DIRECT BILIRUBIN 24.3 MG/DL (0.0-0.4); INDIRECT BILIRUBIN(NOT ORDER) 2.9 MG/DL (0.1-0.9); SGOT(AST) 2403 U/L (5-40); TOTAL BILIRUBIN 27.2 MG/DL (0-1.2)
[2016-09-30 11:36] LABS: INTERNATIONAL NORMAL RATI 2.3 UNITS (-); PROTIME (NOT ORD) 24.9 SEC (12.0-14.5)
[2016-09-30 14:07] LABS: HEPATITIS B SURFACE ANTIGEN NON-REACTIVE (NON-REACT)
[2016-09-30 14:34] LABS: HEPATITIS C ANTIBODY NON-REACTIVE (NON-REACT)
[2016-09-30 14:35] LABS: HEPATITIS B CORE AB IGM NON-REACTIVE (NON-REAC)
[2016-09-30 14:36] LABS: HEP A ANTIBODY IGM NON-REACTIVE (NON-REACT)
[2016-10-01 11:57] LABS: ANA TITER <1:40 TITER
[2016-10-02 15:00] LABS: SMOOTH MUSCLE ANTIBODIES Negative (NEG)
[2016-10-02 15:01] LABS: MITOCHONDRIAL ANTIBODY Negative (NEG)
== END 2016-09-30 14:57 | disposition expired | DRG 853 ==
LOC: 2SO 11:26 → SDC/OF 09-19 18:19 → IMCU 09-19 19:44 → CCU 09-19 21:38
PROVIDERS: Internal Medicine; Internal Medicine Critical Care Medicine; Internal Medicine Gastroenterology; Internal Medicine Nephrology; Internal Medicine Pulmonary Disease; Specialist
PROC: 0DJ08ZZ Inspection of Upper Intestinal Tract, Via Natural or Artificial Opening Endoscopic (ICD-10-PCS; 2016-09-19)
PROC: 5A1955Z Respiratory Ventilation, Greater than 96 Consecutive Hours (ICD-10-PCS; 2016-09-19)
PROC: 0BH17EZ Insertion of Endotracheal Airway into Trachea, Via Natural or Artificial Opening (ICD-10-PCS; 2016-09-19)
PROC: 0FC98ZZ Extirpation of Matter from Common Bile Duct, Via Natural or Artificial Opening Endoscopic (ICD-10-PCS; principal; 2016-09-19 12:39)
PROC: 5A12012 Performance of Cardiac Output, Single, Manual (ICD-10-PCS; 2016-09-19 12:39)
PROC: 0F9430Z Drainage of Gallbladder with Drainage Device, Percutaneous Approach (ICD-10-PCS; 2016-09-19 12:39)
PROC: 0F9400Z Drainage of Gallbladder with Drainage Device, Open Approach (ICD-10-PCS; 2016-09-19 12:39)
PROC: 0F9430Z Drainage of Gallbladder with Drainage Device, Percutaneous Approach (ICD-10-PCS; 2016-09-25)
PROC: 05HM33Z Insertion of Infusion Device into Right Internal Jugular Vein, Percutaneous Approach (ICD-10-PCS; 2016-09-27)
PROC: 02HV33Z Insertion of Infusion Device into Superior Vena Cava, Percutaneous Approach (ICD-10-PCS; 2016-09-27)
PROC: 4A02X4A Measurement of Cardiac Electrical Activity, Guidance, External Approach (ICD-10-PCS; 2016-09-27)
DX: A41.9 Sepsis, unspecified organism (principal); I46.9 Cardiac arrest, cause unspecified; J96.01 Acute respiratory failure with hypoxia; J96.02 Acute respiratory failure with hypercapnia; N17.0 Acute kidney failure with tubular necrosis; R65.21 Severe sepsis with septic shock; K80.63 Calculus of gallbladder and bile duct with acute cholecystitis with obstruction; K83.0 Cholangitis; E87.2 Acidosis; Z99.11 Dependence on respirator [ventilator] status; I48.0 Paroxysmal atrial fibrillation; K29.80 Duodenitis without bleeding; K21.9 Gastro-esophageal reflux disease without esophagitis; I12.9 Hypertensive chronic kidney disease with stage 1 through stage 4 chronic kidney disease, or unspecified chronic kidney disease; K29.70 Gastritis, unspecified, without bleeding; K20.9 Esophagitis, unspecified; M10.9 Gout, unspecified; N18.9 Chronic kidney disease, unspecified; E11.22 Type 2 diabetes mellitus with diabetic chronic kidney disease; K44.9 Diaphragmatic hernia without obstruction or gangrene; Z96.653 Presence of artificial knee joint, bilateral; G47.33 Obstructive sleep apnea (adult) (pediatric); M21.379 Foot drop, unspecified foot; W10.8XXA Fall (on) (from) other stairs and steps, initial encounter; Z96.659 Presence of unspecified artificial knee joint; R79.89 Other specified abnormal findings of blood chemistry; Z91.81 History of falling; Z80.3 Family history of malignant neoplasm of breast; Z88.8 Allergy status to other drugs, medicaments and biological substances; Y92.009 Unspecified place in unspecified non-institutional (private) residence as the place of occurrence of the external cause; Z98.890 Other specified postprocedural states
CPT/HCPCS: 31720; 36569; 36600; 47490; 47531; 71010; 74000; 74176; 74330; 76705; 80048; 80053; 80069; 80074; 80076; 80202; 82150; 82248; 82330; 82330-59; 82533; 82803; 82805; 82947; 82962; 83036; 83605; 83690; 83735; 84100; 84132; 84134; 84145; 84295; 84484; 85014; 85025; 85610; 85730; 86039; 86255; 87040; 87070; 87102; 87205; 87641; 92950; 93005; 94002; 94003; 94640; 94770; A9270-GY; C1751; C1752; C1769; C1876; C1894; C8929; C9113; J0282; J0610; J1170; J1956; J2250; J2370; J2405; J2543; J2710; J2765; J3010; J3370; P9045; P9047; Q9957; Q9967